=== PATIENT | male | born 1960 | race Caucasian/White ===

== ENCOUNTER → 2023-06-14 08:12 | Outpatient (REF) | payer OTHER, SELFPAY | LOC: RCS 08:12 | PROVIDERS: ATTENDING PHYSICIAN Internal Medicine Cardiovascular Disease; FAMILY PHYSICIAN Family Medicine | DX: Z95.2 Presence of prosthetic heart valve (principal) | CPT/HCPCS: 93306 ==

== ENCOUNTER 2023-07-03 00:47 | Inpatient (IN) | payer OTHER, MEDICARE, SELFPAY ==
[2023-07-02 20:44] VITALS: BP 93/59
[2023-07-02 21:04] LABS: % Basophils 0.3 % (0-2); % Immature Granulocytes 1.3 % (0-0.5); % Monocytes 5.5 % (1.7-9.3); % Neutrophils 86.9 % (42.2-75.2); Absolute Basophils 0.1 10^3/uL (0-0.2); Absolute Immature Granulocytes 0.3 10^3/uL (0-0.05); Absolute Lymphocytes 1.2 10^3/uL (1.2-3.4); Absolute Monocytes 1.1 10^3/uL (0.1-0.6); Absolute Neutrophils 17.2 10^3/uL (1.4-6.5); Hematocrit 47.6 % (39.0-52.0); Hemoglobin 15.7 g/dL (13.0-18.0); Mean Platelet Volume 9.9 fL (7.4-10.4); Nucleated Red Blood Cells % 0 % (-); Platelet Count 295 10^3/uL (130-400); Red Blood Cell Count 5.41 10^6/uL (4.70-6.10); Red Cell Dist. Width 14.8 % (11.5-14.5); White Blood Cell Count 19.7 10^3/uL (4.8-10.8)
[2023-07-02 21:32] LABS: COVID-19 Antigen Negative (Negative)
[2023-07-02 21:54] LABS: ALT (SGPT) 26 U/L (0-50); AST (SGOT) 36 U/L (17-59); Albumin 4.4 g/dl (3.5-5.0); Alkaline Phosphatase 128 U/L (38-126); Blood Urea Nitrogen 44 mg/dl (9-20); Calcium 9.5 mg/dl (8.4-10.2); Carbon Dioxide < 5 mmol/L (22-30); Chloride 102 mmol/L (98-107); Glucose 336 mg/dl (70-99); Potassium 5.1 mmol/L (3.5-5.1); Sodium 132 mmol/L (135-145); Total Bilirubin 0.7 mg/dl (0.2-1.3); Total Protein 7.8 g/dl (6.3-8.2); eGFR 41.26
[2023-07-02 22:11] VITALS: BP 103/79
[2023-07-02 22:58] VITALS: BMI 29.6
[2023-07-02 23:00] VITALS: BP 96/59
[2023-07-02 23:06] LABS: Glucose - Point of Care 357 mg/dl (70-99)
--- NOTE | 2023-07-02 23:12 | ED.GENMED ---
History of Present Illness
General
Chief Complaint: Cold/Flu/URI Symptoms
Source: patient
Exam Limitations: none
Time Seen by Provider: 07/02/23 22:18
Travel History
Have you had any contact with someone who has COVID-19?: No
Do you have any symptoms of coronavirus? Fever > 100 degrees, chills, cough, shortness of breath, sore throat, loss of taste or smell, muscle aches, or headache?: Yes
Symptoms:: SOB
History of Present Illness
History of Present Illness:
This is a 63 year old male that comes in with c/o SOB and weakness. States that yesterday he tested positive for COVID at work. States that on Saturday he started just feeling exhausted. States that he was SOB and was unable to walk more then 10 yards
as he was SOB. Stae that his blood sugar was about 120. Saturday night he felt fatigued but Saturday it was much worse. States that he did play golf and he walked the course. By Saturday night he was lethargic and could hardly walk. States that he felt
disoriented with his walking. States that he is very SOB. has had fever on and off with chills, nausea, vomiting, very slight Diarrhea, and he feels that he is dizzy. Denies any chest pain, abd pain, headache, urinary burning.
Past History
Past History
ED Past Medical History: CAD, HTN, Hypercholesterolemia, NIDDM and DE
ED Past Surgical History: Cardiac (2 cardiac stents, Aortic valve replaced, DE X 2, ) and Orthopedic (Right shoulder rotator cuff surgery)
Social History
Tobacco: Non-smoker
Alcohol: None
Personal:
Living: with family
Employment: Employed
Review of Systems
Review of Systems
All Other Systems: ROS reviewed and negative except as documented in HPI and ROS
Constitutional: Reports fever, fatigue and chills
EENT: Reports no symptoms
Respiratory: Reports trouble breathing; Denies cough
Cardiac: Denies chest pain
ABD/GI: Reports nausea, vomiting and diarrhea (Very slight); Denies abdominal pain
: Reports no symptoms; Denies dysuria, frequency or urgency
Musculoskeletal: Reports no symptoms
Skin: Reports no symptoms
Neurological: Reports dizzy; Denies headache
Psychiatric: Reports no symptoms
Phy Exam
General Physical Exam
General Presentation: mild distress
General age: appears stated age
General Skin: warm and dry
General Habitus: normal
General Mental: alert
General Hydration: dry mucous membranes
ENT Exam
ENT Exam: TM's normal, pharynx normal and neck supple
Eye Exam
Eye Exam: EOMI
Cardiovascular Exam
Cardiovascular Exam: regular rate/rhythm, no edema and normal peripheral pulses
Pulmonary Exam
Pulmonary Exam: lungs clear, no respiratory distress, no rales, chest non tender, no crackles, no rhonchi, no wheezing and no cough
Gastrointestinal Exam
Gastrointestinal Exam: normal bowel sounds, non tender, soft, no organomegaly, no pulsatile mass and non distended
Musculoskeletal Exam
Musculoskeletal Exam: full ROM and no edema
Skin Exam
Skin Exam: warm/dry, no rash, no petechia and pallor
Psychiatric Exam
Psychiatric Exam: normal mood/affect
Course
Orders/Labs/Results
Orders:
Orders
07/02/23 20:57
B-Hydroxybutyrate Urgent
Comment: ADD ON
COVID-19 Antigen Urgent
Source: Nasal Swab
Complete Blood Count/With Diff Urgent
Comprehensive Metabolic Panel Urgent
07/02/23 23:11
0.9% Sodium Chloride 1000 ml [Nss] 1,000 ml IV BOLUS
07/02/23 23:13
CR Chest - 2 Views Urgent
Comment:
Reason For Exam: SOB
07/02/23 23:16
CT Head W/o Iv Contrast Urgent
Comment:
Reason For Exam: Difficulty walking
07/02/23 23:20
Add On- LAB Urgent
Tests Added?: B-Hydroxybutyrate
Lactic Acid Urgent
Blood Culture Q30M
MARY ALICE Source: Blood/Venous
Specimen Description:
07/02/23 23:48
0.9% Sodium Chloride 1000 ml [Nss] 1,000 ml IV BOLUS
07/02/23 23:49
Urinalysis Reflex To Culture Urgent
Date Specimen was Collected: 07/02/23
Time Specimen was Collected: 23:26
Urine Microscopic Reflex Cult Urgent
Urine Culture Urgent
MARY ALICE Source: U
Specimen Description:
Date Specimen was Collected: 07/02/23
Time Specimen was Collected: 23:26
07/02/23 23:55
Blood Culture Q30M
MARY ALICE Source: Blood/Venous
Specimen Description:
07/03/23 00:19
Basic Metabolic Panel Urgent
07/03/23 00:29
Admit/Transfer Patient As Directed
Co-Sign Provider:
Level of Care: Inpatient admission
Assign to:: ICU
Physician / Group: Paty/hospitalist
Diagnosis: DKA
Reason for Hospitalization: DKA
Expected length of stay greater than two midnights?: Yes
ELOS- Estimated Length of Stay in days: 3
I certify the patient meets the requirements for IP care: Yes
07/03/23 00:30
Code Status As Directed
Resuscitation Status: Full Code
07/03/23 01:23
Acetaminophen [Tylenol] 650 mg PO Q6HPRN PRN
Reg Insulin 100 Units/100 ml [Novolin R Insulin Infusion] 100 units in 100 ml IV PER PROTOCOL
Currently infusing. Continue current dose and titrate:: Yes
07/03/23 01:23
Consult Notification Routine
Specialty to Notify: Drug Abuse Counselor
Diabetes Management by Nurse Practitioner Routine
Consulting Provider: Patsy Colbert
Was provider already notified?: No
Reason for Consult: Insulin Management
Drug Abuse Counselor Consult Routine
Consulting Provider: Marilyn Goodson
Was physician already notified: No
Reason for consult: DKA
Activity As Directed
Activity Level: As Tolerated
Bedside Glucose Monitoring As Directed
Frequency: Q1H
Intake/ Output As Directed
Frequency: Per unit guidelines
Notify MD As Directed
Notify physician if: Nurse to contact provider when glucose reaches 250 to obtain orders for D5 0.45 NaCl
Vital Signs As Directed
Frequency: Per unit guidelines
DX Deep Vein Thrombosis Video Routine
07/03/23 02:00
Azithromycin 500 mg/250 ml [Zithromax Infusion] 500 mg in 250 ml IV Q24H
CefTRIAXone [Rocephin] 1,000 mg IV Q24H
07/03/23 04:00
Basic Metabolic Panel Q4H
07/03/23 Breakfast
NPO
Allow oral meds: Yes
Allow clear liquids: Sips of Clears
Complete Blood Count/With Diff IN AM
Glycohemoglobin (HgbA1c) IN AM
07/03/23 08:00
Basic Metabolic Panel Q4H
Aspirin Low Dose EC [Aspir Low (Enteric Coated)] 81 mg PO DAILY
Heparin 5,000 units SC Q12
Rosuvastatin Calcium [Crestor] 40 mg PO DAILY
07/03/23 12:00
Basic Metabolic Panel Q4H
07/03/23 16:00
Basic Metabolic Panel Q4H
07/03/23 20:00
Basic Metabolic Panel Q4H
Abnormal Lab Results
07/02/23 07/02/23 07/02/23
20:57 23:05 23:20
WBC 19.7 H 10^3/uL
(4.8-10.8)
RDW 14.8 H %
(11.5-14.5)
Abs Immat Gran (auto) 0.3 H 10^3/uL
(0-0.05)
Absolute Neuts (auto) 17.2 H 10^3/uL
(1.4-6.5)
Absolute Monos (auto) 1.1 H 10^3/uL
(0.1-0.6)
Immature Gran % 1.3 H %
(0-0.5)
Neutrophils % 86.9 H %
(42.2-75.2)
Lymphocytes % 6.0 L %
(20.5-51.1)
Sodium 132 L mmol/L
(135-145)
Potassium
Carbon Dioxide < 5 L* mmol/L
(22-30)
BUN 44 H mg/dl
(9-20)
Creatinine 1.8 H mg/dL
(0.7-1.3)
Glucose 336 H mg/dl
(70-99)
Lactic Acid 2.5 H mmol/L
(0.7-2.0)
Calcium
Alkaline Phosphatase 128 H U/L
(38-126)
Urine Ketones
Ur Occult Blood Reflex
Urine RBC
Urine Bacteria (Reflex)
Urine Glucose
Urine Albumin (Reflex)
B-Hydroxybutyrate 7.27 H mmol/L
(0.02-0.27)
POC Glucose 357 H mg/dl
(70-99)
07/02/23 07/03/23
23:49 00:19
WBC
RDW
Abs Immat Gran (auto)
Absolute Neuts (auto)
Absolute Monos (auto)
Immature Gran %
Neutrophils %
Lymphocytes %
Sodium 132 L mmol/L
(135-145)
Potassium 5.2 H mmol/L
(3.5-5.1)
Carbon Dioxide < 5 L* mmol/L
(22-30)
BUN 49 H mg/dl
(9-20)
Creatinine 2.0 H mg/dL
(0.7-1.3)
Glucose 336 H mg/dl
(70-99)
Lactic Acid
Calcium 8.1 L mg/dl
(8.4-10.2)
Alkaline Phosphatase
Urine Ketones 3+ A
(Negative)
Ur Occult Blood Reflex 4+ A
(Negative)
Urine RBC 7-10 A /HPF
(0-2)
Urine Bacteria (Reflex) Moderate A
(Negative)
Urine Glucose 3+ A
(Negative)
Urine Albumin (Reflex) 1+ A
(Neg - Trace)
B-Hydroxybutyrate
POC Glucose
07/02/23 20:57
07/03/23 00:19
Leukocytosis, Sodium slightly low. acute renal insufficiency, Hyperglycemia, Alk phos slightly elevated. COVID negative. Anion gap 25, Lactic acid 2.5, Urine negative for infection.
Repeat labs after 2 liters of fluid- Sodium 132, Potassium 5.2, chloride 106, Carbon dioxide <5, BUN 49, Cr 2.0, Glucose 226, Calcium 8.1
Vital Signs
Initial and Last Documented VS:
Initial Vital Signs
Pulse Resp BP Pulse Ox
105 30 93/59 96
07/02/23 20:44 07/02/23 20:44 07/02/23 20:44 07/02/23 20:44
Last Documented Vital Signs
Pulse Resp BP Pulse Ox
92 24 111/62 100
07/03/23 01:39 07/03/23 01:39 07/03/23 01:00 07/03/23 00:15
MDM/Problems Addressed
Differential Diagnosis Includes:
DKA, UTI, PNA,
MDM/Problems Addressed:
This is a 63 year old male that comes in with c/o extreme exhaustion and SOB. States that he feels disoriented with walking and he can't walk more then 10 feet.
Will get labs. CT head, Chest x-ray Urine and given IV fluids.
Chronic conditions affecting care: DM
Acute Exacerbation and/or Progression of Chronic Illness: DM
*Radiology
Radiology exam reviewed: preliminary read by ED provider (Chest- Negative for active disease. ) and radiology read reviewed (CT head-NO acute hemorrhage, herniation, or hydrocephalus. No calvarial fracure. The visualized paranasal sinuses and
mastoid air cells are clear. )
*Pulse Oximetry
Patient hypoxic: no
*Online Editor Interpretation
Rate: normal
Heart Rate: 94
Rhythm: sinus
*Critical Care Note
Total Time (30-74mins, 75-104mins- exclusive of procedures): Not Applicable
ED Attending Note
-
Portions of this chart may have been created with voice recognition software.� Occasional wrong word or��sound alike� substitutions may have occurred due to the inherent limitations of voice recognition software.
Discharge Plan
Departure
Patient Disposition: Admit
Date of Disposition: 07/03/23
Time of Disposition: 00:11
Admit to: ICU
Presentation/result/management discussed w/ accepting MD/DO: Hospitalist
Patient with high blood pressure during this ER visit?: No
Condition: Good
Covid-19: Negative COVID-19
Discharge Problem:
DKA (diabetic ketoacidosis)
Interventions
Interventions:
*Risk Screen - Suicide Last Done: 07/02/23 20:44
*General Assessment Last Done: 07/02/23 22:50
*Neglect/Abuse Screening Last Done: 07/02/23 20:44
ED- Fall Risk Assessment Last Done: 07/02/23 22:50
*ED COVID-19 Vaccine History Last Done: 07/02/23 20:44
ED- Pulmonary Assessment Last Done: 07/02/23 22:50
[2023-07-02] MEDS: NSS 1000 IV ×2 (23:15→23:57)
[2023-07-02 23:44] LABS: Lactic Acid 2.5 mmol/L (0.7-2.0)
[2023-07-02] MEDS: NSS IV (23:56)
[2023-07-03] VITALS (29 sets, daily range): BP systolic 93–145; BP diastolic 50–89; BMI 29.5
[2023-07-03 00:05] LABS: Urine Albumin 1+ (Neg - Trace); Urine Bilirubin Negative (Negative); Urine Character Clear (Clear); Urine Color Yellow; Urine Glucose 3+ (Negative); Urine Ketone 3+ (Negative); Urine Leukocyte Negative (Negative); Urine Nitrite Negative (Negative); Urine Occult Blood 4+ (Negative); Urine Urobilinogen Negative (Neg - 1+)
--- NOTE | 2023-07-03 00:09 | HPS.HSE ---
Family Physician
-
Family Physician: Francisco Diggs
Chief Complaint
-
Fever, shortness of breath, dyspnea exertion, generalized weakness and fatigue
History of Present Illness
HPI: 63 year old male with PMH CAD s/p 2 PCI and CABG, Aortic valve replacement, HTN, Hypercholesterolemia, NIDDM; p/w generalized weakness, shortness of breath and dyspnea on exertion ongoing for about 2 days. Apparently he was tested positive for
COVID the day prior at work. He also complained of intermittent fever with chills, nausea, vomiting, and mild diarrhea.
He denies to chest pain, abd pain, headache, urinary symptoms etc.
In the ER, he was noted to have anion gap of 25. Admit for euglycemic DKA.
Medical History
Past Medical History
Past Medical History: Reports Other
Additional Past Medical History:
CAD s/p 2 PCI and CABG
Aortic valve replacement
HTN
Hypercholesterolemia
NIDDM
Past Surgical History: Reports Other
Additional Past Surgical History:
Aortic valve replacement
Cardiac bypass surgery x 2
Social History
Alcohol: None
Personal:
Living: With Family
Family History
Family History: Not pertinent
Allergies / Home Medications
Allergies reflects when Allergies were last updated in [facility].
Home Medications with original date entered in [facility]
Allergy/Medication List:
Medications on admission are unable to be verified or confirmed at this time.
Review of Systems
-
Constitutional: Reports See HPI, Fever, Fatigue and Chills
Respiratory: Reports Cough (Mild) and Trouble Breathing
Physical Exam
Vital Signs
Vital Signs
Pulse Resp BP Pulse Ox
96 25 103/79 98
07/02/23 23:00 07/02/23 23:00 07/02/23 22:11 07/02/23 22:57
Physical Exam
General: Well Developed, Well Nourished, Comfortable and Conversant
HEENT: NormoCephalic, Moist mucous membranes, Atraumatic and Oxygen (2 L NC)
Respiratory: Clear and Non Labored Respirations; No Accessory Resp Muscle Use
Cardiac: S1/S2 and Regular Rhythm; No Murmur or Rub
GI: Soft, Non Tender, Non Distended and Normal Bowel Sounds; No Organomegaly
Rectal: Deferred by Provider
Musculoskeletal: No Clubbing, No Cyanosis and No Edema
Skin: No Rash
Neuro: Awake and AO x 3
Psych: Calm and Intact Judgment/Insight
Laboratory Results
-
07/02/23 20:57
07/02/23 20:57
Laboratory Results
Lactic Acid 2.5 mmol/L (0.7-2.0) H 07/02/23 23:20
Total Bilirubin 0.7 mg/dl (0.2-1.3) 07/02/23 20:57
AST 36 U/L (17-59) 07/02/23 20:57
ALT 26 U/L (0-50) 07/02/23 20:57
Alkaline Phosphatase 128 U/L (38-126) H 07/02/23 20:57
Data Reviewed
-
Diagnostic Radiology: Image Personally Visualized and interpreted
Lab Data: Labs Reviewed by me
Impression/Plan
-
HPI: 63 year old male with PMH CAD s/p 2 PCI and CABG, Aortic valve replacement, HTN, Hypercholesterolemia, NIDDM; p/w generalized weakness, shortness of breath and dyspnea on exertion ongoing for about 2 days. Apparently he was tested positive for
COVID the day prior at work. He also complained of intermittent fever with chills, nausea, vomiting, and mild diarrhea.
He denies to chest pain, abd pain, headache, urinary symptoms etc.
In the ER, he was noted to have anion gap of 25. Admit for euglycemic DKA.
A/P:
# Euglycemic DKA with anion gap 25 on admission, BG 300; suspect related to Jardiance which he takes for his heart condition
# h/o NIDDM
# Prerenal ANGELA
# Mild lactic acidosis present on admission
Status post 3 L NSS IV fluid in ER
Start insulin drip
Monitor BMP every 4 hours for anion gap closure x2
NPO for now
DM [employer]AMP[employer] HAND CS
Monitor lactic acid level
Monitor serum creatinine. Creatinine 1.8 on admission, from baseline 0.6
ICU admission with machine crater consult
# Leukocytosis, possibly reactive
Patient did endorse to fever with pulmonary symptoms (mild cough, shortness of breath) for 2 days
Check blood culture
Start empiric ceftriaxone and azithromycin, low threshold to stop antibiotic
CXR on my view NAD, follow formal report
# COVID positive the day prior to admission at work
COVID test negative in ER, check repeat COVID test in the morning
# CAD s/p 2 PCI and CABG
# HTN
Hold BP meds currently with borderline blood pressure
Would NOT recommend to continue with Jardiance
# Aortic valve replacement
# Hypercholesterolemia
statin
DVT ppx: HSQ
FC
[2023-07-03 00:25] LABS: Urine Bacteria Moderate (Negative)
[2023-07-03 00:42] LABS: B-Hydroxybutyrate 7.27 mmol/L (0.02-0.27)
[2023-07-03 01:17] LABS: Blood Urea Nitrogen 49 mg/dl (9-20); Calcium 8.1 mg/dl (8.4-10.2); Carbon Dioxide < 5 mmol/L (22-30); Chloride 106 mmol/L (98-107); Estimated Creatinine Clearance 34 ml/min; Glucose 336 mg/dl (70-99); Potassium 5.2 mmol/L (3.5-5.1); Sodium 132 mmol/L (135-145); eGFR 36.36
[2023-07-03] MEDS: NOVOLIN R INSULIN INFUSION 100 IV (01:36)
[2023-07-03] MEDS: ROCEPHIN 1000 MG IV (02:04)
[2023-07-03] MEDS: ZITHROMAX INFUSION 250 IV (02:15)
[2023-07-03 02:32] LABS: Glucose - Point of Care 292 mg/dl (70-99)
[2023-07-03 03:32] LABS: Glucose - Point of Care 235 mg/dl (70-99)
[2023-07-03] MEDS: D5/0.45%NACL 1000 IV ×3 (03:51→20:25)
[2023-07-03 04:36] LABS: Blood Urea Nitrogen 47 mg/dl (9-20); Calcium 8.3 mg/dl (8.4-10.2); Carbon Dioxide < 5 mmol/L (22-30); Chloride 113 mmol/L (98-107); Estimated Creatinine Clearance 49 ml/min; Glucose 230 mg/dl (70-99); Potassium 4.8 mmol/L (3.5-5.1); Sodium 136 mmol/L (135-145); eGFR 55.78
[2023-07-03 05:01] LABS: Glucose - Point of Care 250 mg/dl (70-99)
--- NOTE | 2023-07-03 05:07 | PTCARENOTE ---
Rec'd patient from ED. Ambulated from stretcher to bed. Generalized weakness. AAOx3. VSS. Insulin gtt and D51/2NS infusing as ordered.
[2023-07-03 06:07] LABS: Glucose - Point of Care 226 mg/dl (70-99)
[2023-07-03 06:09] LABS: % Basophils 0.3 % (0-2); % Immature Granulocytes 0.8 % (0-0.5); % Lymphocytes 5.6 % (20.5-51.1); % Monocytes 5.9 % (1.7-9.3); % Neutrophils 87.4 % (42.2-75.2); Absolute Immature Granulocytes 0.1 10^3/uL (0-0.05); Absolute Lymphocytes 0.9 10^3/uL (1.2-3.4); Absolute Monocytes 0.9 10^3/uL (0.1-0.6); Absolute Neutrophils 13.9 10^3/uL (1.4-6.5); Hematocrit 39.8 % (39.0-52.0); Hemoglobin 13.5 g/dL (13.0-18.0); Mean Corp Hgb Conc. 33.9 g/dL (33.0-37.0); Mean Corpuscular Hgb 29.2 pg (27.0-31.0); Mean Corpuscular Volume 86.1 fL (80.0-94.0); Mean Platelet Volume 10.2 fL (7.4-10.4); Nucleated Red Blood Cells % 0 % (-); Platelet Count 196 10^3/uL (130-400); Red Blood Cell Count 4.62 10^6/uL (4.70-6.10); Red Cell Dist. Width 14.9 % (11.5-14.5); White Blood Cell Count 15.9 10^3/uL (4.8-10.8)
[2023-07-03 06:19] LABS: APTT 30.6 Sec (23.4-35.0)
[2023-07-03 06:36] LABS: Lactic Acid 0.9 mmol/L (0.7-2.0); Magnesium 2.9 mg/dl (1.6-2.3); Phosphorus 3.2 mg/dl (2.5-4.5)
--- NOTE | 2023-07-03 07:22 | CON.INTV ---
Consultation
Consultation Request
Date/Time Consultation Requested: 07/03/23
Date/Time Consultation Performed: 07/03/23
Performing Provider: Kellee
Reason for Consultation: ICU
Medical History
-
History of Present Illness:
Patient is a 63-year-old male with previous history of CAD status post CABG, aortic valve replacement, JONNATHAN on CPAP presenting to ER for generalized weakness, shortness of breath and fever/chills since wednesday 06/28. He tested self tested
positive for COVID on friday 06/30. In the ER, he was noted to have hyperglycemia with anion gap metabolic acidosis consistent with DKA. He is placed on an insulin drip and admitted to ICU.
CXR clear, he seems improved from a symptomatic place and on RA. COVID testing in ER negative.
He did notice polydipsia through the weekend with nausea.
Past Medical History
Past Medical History: Other (see list below)
Social History
Tobacco: Non-smoker
Alcohol: None
Drug: None
Family History
Family History: Reviewed & Not Pertinent
Allergies / Home Medications
Allergies
Allergy/AdvReac Type Severity Reaction Status Date / Time
clopidogrel [From Plavix] Allergy SWELLING Verified 07/03/23 00:21
AND RASH
Home Medications
�Medication �Instructions �Recorded �Confirmed �Last Taken �Type
lisinopril 40 mg tablet 40 mg PO BID 10/10/13 12/01/21 12/01/21 06:30 History
rosuvastatin 40 mg tablet (Crestor) 40 mg PO DAILY 10/10/13 12/01/21 12/01/21 06:30 History
aspirin 81 mg capsule 81 mg PO DAILY 12/01/21 12/01/21 12/01/21 08:00 History
empagliflozin 10 mg tablet 10 mg PO DAILY 12/01/21 12/01/21 11/30/21 05:00 History
(Jardiance)
ezetimibe 10 mg tablet (Zetia) 10 mg PO DAILY 12/01/21 12/01/2112/01/22 06:30 History
metformin 1,000 mg tablet 1,000 mg PO BID 12/01/21 12/01/21 11/30/21 05:00 History
metoprolol succinate 50 mg 50 mg PO DAILY 12/01/21 12/01/21 12/01/21 06:30 History
tablet,extended release 24 hr
Review of Systems
-
History Source: Patient
All other systems: Negative unless noted
Vitals / Labs / Diagnostic Testing
Vital Signs
Temp Pulse Resp BP Pulse Ox
96.0 F L 91 26 104/64 94
07/03/23 04:57 07/03/23 06:15 07/03/23 06:15 07/03/23 06:15 07/03/23 06:15
Lab Data
07/03/23 05:54
Laboratory Results
07/03/23
05:54
PT 16.0 H
INR 1.30
APTT 30.6
Diagnostic Testing:
Physical Exam
-
HEENT: Normocephalic, Anicteric and Moist Mucous Membranes
Cardiovascular: S1/S2 and Regular Rhythm
Respiratory: Clear and Non-Labored Respirations
GI: Soft, Non Distended and Non Tender
Neurology: Awake, Alert, Oriented, AO x 3 and No Motor Deficits
Skin: Warm, Dry and Good Color
General: Comfortable and Other (NAD)
Assessment
-
Patient is a 63-year-old male with previous history of CAD status post CABG, aortic valve replacement, JONNATHAN on CPAP presenting to ER for generalized weakness, shortness of breath and fever/chills since wednesday 06/28. He tested self tested
positive for COVID on friday 06/30. In the ER, he was noted to have hyperglycemia with anion gap metabolic acidosis consistent with DKA. He is placed on an insulin drip and admitted to ICU.
DKA
Acute COVID infection, neg PCR test on admission
ANGELA, creat 2.0 (baseline 0.6-0.9)
Lactic acidosis
Leukocytosis
Generalized malaise/fatigue
SOB
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
Hyperlipidemia
Hypertension
Non Q-Wave ID
PAF
Inflammatory arthritis
Diabetes type 2
CAD in [place] artery S/P Catheterization Stents x2
Heart murmur
History of ID
Angioplasty(2004)
Shoulder Surgery
CABG and Aortic valve replacement @[facility] 06/25/22
JONNATHAN on CPAP, HST 06/30/20 AHI 72.5/63%
Plan
DKA, admitting BS elevated, AG >20
Bicarb <5. 3+ ketones in urine
Started on insulin drip, can wean today following protocol, start D5 IVFs
Consult diabetic nurse for insulin recommendations
Can restart diet once able to bridge
H/o poorly controlled diabetes, hopeful transition to home meds
Trigger may be COVID illness
Hba1c 9.6%
NPO for now
Diet transition following DKA protocol
GI ppx: as indicated
Oxygen requirements: room air
Continue supplemental O2 as needed, wean as tolerated
Encourage daily proning and OOB
COVID tested + 06/30, symptoms began 06/28
CXR clear, he seems improved from a symptomatic place and on RA.
COVID testing in ER negative 07/01.
I do not think patient requires treatment for this or isolation/discussed with IP
Patient can wear mask
Remove isolation
Supportive care
Prior pulmonary history: JONNATHAN on CPAP
Resume home CPAP
Hemodynamically stable, not requiring pressors.
Prior h/o cardiac disease--HTN/CAD, resume home meds
ECHO in past reviewed/stable
Creat at baseline, follow UO
Acid/base status: AGMA 2/2 DKA, follow until AG <12
DVT ppx SCDs
We will follow
Diagnostic Data
Chest X-Ray: 03/29/10- No active cardiopulmonary disease
CT Scan: AP 10/10/13- Diverticulosis with findings suspicious for diverticulitis of the proximal sigmoid colon. No accompanying abnormal focal fluid collection. Small fat only containing umbilical hernia.
Right renal cyst. Mild diffuse fatty infiltration of the liver.
Echo: 06/14/23- Normal left ventricular size, wall thickness and systolic function. No regional wall motion abnormalities are seen. LV ejection fraction is 55-60% by visual assessment. Normal diastolic function. Prosthetic aortic valve. Peak/mean
gradients across the aortic valve are 17/9 mmHg. Trace aortic regurgitation is seen. Since echocardiogram October 2021, patient is now status post AVR.
11/10/21- 1. Normal left ventricular size and systolic function. Estimated LV ejection fraction 55 to 60% by visual estimation. No obvious regional wall motion abnormalities. Normal diastolic function.
2. Normal right ventricular size and function.
3. Calcified, trileaflet aortic valve with decreased excursion. Peak and mean gradients across the aortic valve are 70 and 40 mmHg respectively with a calculated aortic valve area of 0.8 cm2 using the continuity equation, dimensionless index of
0.2 consistent with severe aortic stenosis. Mild aortic regurgitation.
4. Mild tricuspid regurgitation with estimated pulmonary artery pressure of 25 to 30 mmHg, assuming a right atrial pressure of 3 mmHg.
5. No pericardial effusion.
6. Compared to prior echocardiogram on 05/10/2021, mean gradient across aortic valve has increased to 40mmHg consistent with severe aortic stenosis.
PFT's:
Reports and relevant images were personally reviewed.
-----
Critical care time 75 mins -- this includes review of history, physical exam, medications, hemodynamic/ventilator parameters, laboratory data, imaging and discussion with house staff, pharmacy, respiratory therapy, circular saw filer, and nursing.
[2023-07-03 07:34] LABS: Glucose - Point of Care 215 mg/dl (70-99)
--- NOTE | 2023-07-03 08:00 | PTCARENOTE ---
Assumed care of pt at 0715 following shift report. Pt resting quietly in bed w/ eyes closed. Arousable to name. Ox3 and appropriate. Denies c/o pain other than 'a little bit of a sore throat'. Pt remains on RA w/ IVF and Insulin gtt infusing as
documented. NSR on monitor. Pt NPO per order, taking sips of clear liquids. Denies any nausea. Independently using urinal to void. Physical assessment as documented. Call renetta w/in pt reach and safe environment maintained.
[2023-07-03] MEDS: HEPARIN 5000 UNITS SC ×3 (08:16→23:44)
[2023-07-03] MEDS: ASPIR LOW (ENTERIC COATED) 81 MG PO (08:16)
[2023-07-03] MEDS: CRESTOR 40 MG PO (08:16)
[2023-07-03 08:26] LABS: Glucose - Point of Care 200 mg/dl (70-99)
--- NOTE | 2023-07-03 08:57 | PN.DE.MGMTRT ---
Insulin Management
- -
07/03/2023 Diabetes Management Consult
Patient admitted 07/01 with fever, SUN, weakness, covid +, DKA. PMH CAD s/p 2 PCI and CABG, Aortic valve, HTN, HCL, type 2 diabetes. Patient known to me from one time consultation in 2019. Soliqua was started at that time. Home medications
include Jardiance 10 mg daily and metformin 1000 BID. A1C is 9.6,
Cr 1.4, eGFR 55.78, GAP improved from 30 to 23.
Will continue insulin infusion and reassess for readiness to transition from insulin infusion. Will not restart Jardiance.
Discussed with patients nurse.
Diabetes History
- -
Type of Diabetes: 2
Pre-Admission Diabetes Regimen
07/02/23 07/03/23 07/03/23
20:57 00:19 03:43
Creatinine 1.8 H 2.0 H 1.4 H
Insulin Pump Settings
IP Diabetes Regimen
07/02/23 07/02/23 07/03/23
20:57 23:05 00:19
Glucose 336 H 336 H
POC Glucose 357 H
07/03/23 07/03/23 07/03/23
02:30 03:31 03:43
Glucose 230 H
POC Glucose 292 H 235 H
07/03/23 07/03/23 07/03/23
04:49 05:53 07:24
Glucose
POC Glucose 250 H 226 H 215 H
07/03/23
08:14
Glucose
POC Glucose 200 H
Patient Education
[2023-07-03 09:10] LABS: Blood Urea Nitrogen 43 mg/dl (9-20); Calcium 8.5 mg/dl (8.4-10.2); Carbon Dioxide < 5 mmol/L (22-30); Chloride 114 mmol/L (98-107); Estimated Creatinine Clearance 63 ml/min; Glucose 224 mg/dl (70-99); Potassium 4.6 mmol/L (3.5-5.1); Sodium 137 mmol/L (135-145); eGFR > 60.00
--- NOTE | 2023-07-03 09:19 | W.PN.HOSP.TC ---
Today's Communication/Plan
-
IV fluids. IV insulin drip. Monitor electrolytes and anion gap closely. IV antibiotics.
Assessment / Plan
Assessment / Plan
Physical Exam
General: Acutely ill
HEENT: NormoCephalic, Moist mucous membranes, Atraumatic and Oxygen (2 L NC)
Respiratory: Clear and Non Labored Respirations; No Accessory Resp Muscle Use
Cardiac: S1/S2 and Regular Rhythm; No Murmur or Rub
GI: Soft, Non Tender, Non Distended and Normal Bowel Sounds; No Organomegaly
Rectal: Deferred by Provider
Musculoskeletal: No Clubbing, No Cyanosis and No Edema
Skin: No Rash
Neuro: Awake and AO x 3
Psych: Calm and Intact Judgment/Insight
A/P:
A/P:
# Euglycemic DKA with anion gap 25 on admission, BG 300; suspect related to Jardiance which he takes for his heart condition but also infectious process could have been contributed.
# h/o NIDDM
# Prerenal ANGELA
# Mild lactic acidosis present on admission
Bicarb 6 upon admission glucose 240
Status post 3 L NSS IV fluid in ER
Cont insulin drip
Monitor BMP every 4 hours for anion gap closure x2
NPO for now
DM INSIDE WIRER CS
Monitor lactic acid level
Monitor serum creatinine. Creatinine 1.8 on admission, from baseline 0.6
ICU admission with associate spa director consult
# Leukocytosis, possibly reactive versus infectious
Patient did endorse to fever with pulmonary symptoms (mild cough, shortness of breath) for 2 days
Check blood culture
Continue empiric ceftriaxone and azithromycin
Follow-up cultures
CXR on my view NAD, follow formal report
# COVID positive the day prior to admission at work
COVID test negative in ER.
Does not require any further treatment.
# CAD s/p 2 PCI and CABG
# HTN
Continue aspirin and statin
Hold BP meds currently with borderline blood pressure
Would NOT recommend to continue with Jardiance
# Paroxysmal atrial fibrillation
#Obstructive sleep apnea
# Aortic valve replacement
#Hypertension
# Hypercholesterolemia
statin
Full code
DVT ppx: HSQ
Total Critical Care Time 35 minutes. I was immediately available to the patient and staff. I personally examined, reviewed labs, diagnostic images/reports, interpretations, treatment plans, discussed patient care with other providers and family
or caregivers (if patient is unable to make decisions), entered orders as appropriate and documented the medical record.
Anticipated Discharge: > 48 hours
Subjective/Interval History
-
Date of Service: July 03, 2023
Patient does not feel well yet. Still acidotic. Afebrile and episode of hypothermia.
Objective Data
-
Labs:
Laboratory Results
07/02/23 07/03/23 07/03/23
20:57 00:19 03:43
WBC
Hgb
Hct
Plt Count
PT
INR
APTT
Sodium 132 L 132 L 136
Potassium 5.1 5.2 H 4.8
Chloride 102 106 113 H
Carbon Dioxide < 5 L* < 5 L* < 5 L*
BUN 44 H 49 H 47 H
Creatinine 1.8 H 2.0 H 1.4 H
Glucose 336 H 336 H 230 H
Calcium 9.5 8.1 L 8.3 L
Total Bilirubin 0.7
AST 36
ALT 26
Alkaline Phosphatase 128 H
07/03/23 07/03/23 07/03/23
05:54 08:22 12:00
WBC 15.9 H
Hgb 13.5
Hct 39.8
Plt Count 196 D
PT 16.0 H
INR 1.30
APTT 30.6
Sodium 137 Pending
Potassium 4.6 Pending
Chloride 114 H Pending
Carbon Dioxide < 5 L* Pending
BUN 43 H Pending
Creatinine 1.1 Pending
Glucose 224 H Pending
Calcium 8.5 Pending
Total Bilirubin
AST
ALT
Alkaline Phosphatase
07/03/23 07/03/23
16:00 20:00
WBC
Hgb
Hct
Plt Count
PT
INR
APTT
Sodium Pending Pending
Potassium Pending Pending
Chloride Pending Pending
Carbon Dioxide Pending Pending
BUN Pending Pending
Creatinine Pending Pending
Glucose Pending Pending
Calcium Pending Pending
Total Bilirubin
AST
ALT
Alkaline Phosphatase
Vital Signs:
Vital Signs
Temp Pulse Resp BP Pulse Ox
97.9 F 91 26 104/64 94
07/03/23 07:43 07/03/23 06:15 07/03/23 06:15 07/03/23 06:15 07/03/23 06:15
I&O
07/02/23 07/03/23 07/04/23
06:59 06:59 06:59
Output Total 875 / 875
Balance -875 / -875
[2023-07-03 09:36] LABS: Glycohemoglobin (HgbA1c) 9.6 % (4.0-5.6)
[2023-07-03 09:37] LABS: Glucose - Point of Care 209 mg/dl (70-99)
[2023-07-03 10:36] LABS: Glucose - Point of Care 215 mg/dl (70-99)
[2023-07-03 11:26] LABS: B.E. -15.1 mmol/L; O2 Saturation % 93.7 % (94-98); PCO2 19 mmHg (35-48); pH 7.29 (7.35-7.45)
[2023-07-03 11:30] LABS: O2 Therapy ROOM AIR
[2023-07-03 11:32] LABS: HCO3 9.1 mmol/L (21-28); PO2 59 mmHg (83-108)
[2023-07-03 12:09] LABS: Glucose - Point of Care 232 mg/dl (70-99)
--- NOTE | 2023-07-03 12:24 | PTCARENOTE ---
Pt continues to rest quietly in bed- napping when undisturbed. Denes pain or SOB. Pox mid 90's on RA, RR low to mid 20's. No changes from previous assessment findings.
[2023-07-03 12:43] LABS: Troponin I < 0.012 ng/ml
[2023-07-03 12:51] LABS: Glucose - Point of Care 220 mg/dl (70-99)
[2023-07-03 13:00] LABS: Procalcitonin 1.64 ng/ml (0.0-0.25)
[2023-07-03 13:42] LABS: Blood Urea Nitrogen 35 mg/dl (9-20); Calcium 8.4 mg/dl (8.4-10.2); Carbon Dioxide 6 mmol/L (22-30); Chloride 114 mmol/L (98-107); Estimated Creatinine Clearance 77 ml/min; Glucose 240 mg/dl (70-99); Potassium 4.1 mmol/L (3.5-5.1); Sodium 137 mmol/L (135-145); eGFR > 60.00
[2023-07-03 13:47] LABS: Glucose - Point of Care 209 mg/dl (70-99)
--- NOTE | 2023-07-03 13:50 | PTCARENOTE ---
Novel Respiratory precautions removed per Dr Nicole. Infection Prevention made aware of ordered change in precautions. Per Dr Nicole, she spoke to pt about him wearing a mask when people in room and per Dr Nicole, pt voiced understanding and agreement
with this. Pt placed on droplet precautions as added safety measure- Dr Nicole and Infection prevention made aware. Pt continues to rest quietly, no changes noted or complaints received.
--- NOTE | 2023-07-03 13:52 | CM ---
CM following re: discharge planning.
Discussed in Rounds, reviewed pt's chart, met with pt.
Pt is a 63 year old male, admitted with primary dx of DKA.
Pt reports he lives with spouse 2SH, 1 step t enter, has 2 supportive children. 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
PCP: Francisco turcios
Pharmacy: [facility]
D/C plan: home with anticipated no needs. Spouse to transport at discharge.
CM will follow with discharge plan updates as hospitalization progresses
[2023-07-03 15:01] LABS: Glucose - Point of Care 204 mg/dl (70-99)
--- NOTE | 2023-07-03 15:08 | PTCARENOTE ---
Per Infection Control, spoke w/ Dr Nicole and pt OK for no additional precautions other than standard.
[2023-07-03 15:41] LABS: Glucose - Point of Care 203 mg/dl (70-99)
--- NOTE | 2023-07-03 16:00 | PTCARENOTE ---
Pt sat OOB in chair x1.5hr. Tolerated well, requesting to return to bed. here to visit and brought pt's CPap from home. Continuing to adjust Insulin gtt rate based on accuchecks (see work list intervention). Remains on RA w/ Pox 96%. Mild SUN
noted w/ increased activity. Denies SOB at rest. Remains NPO excepts sips of clear liquids.
[2023-07-03 16:49] LABS: Glucose - Point of Care 270 mg/dl (70-99)
[2023-07-03 17:08] LABS: Blood Urea Nitrogen 33 mg/dl (9-20); Calcium 8.5 mg/dl (8.4-10.2); Carbon Dioxide 8 mmol/L (22-30); Chloride 113 mmol/L (98-107); Estimated Creatinine Clearance 77 ml/min; Glucose 253 mg/dl (70-99); Potassium 4.3 mmol/L (3.5-5.1); Sodium 136 mmol/L (135-145); eGFR > 60.00
[2023-07-03 17:53] LABS: Glucose - Point of Care 230 mg/dl (70-99)
[2023-07-03 18:45] LABS: Glucose - Point of Care 225 mg/dl (70-99)
[2023-07-03] MEDS: LOPRESSOR 5 MG IV (20:12)
[2023-07-03 20:21] LABS: Glucose - Point of Care 201 mg/dl (70-99)
--- NOTE | 2023-07-03 20:40 | PTCARENOTE ---
Rec'd care of patient at 1900. Patient in bed. Alert and oriented. Vitals stable. NSR with PACs on tele monitor. Patient having frequent bursts of ST up to 140's. EMBEDDED SOFTWARE DESIGN ENGINEER notified and order for 5mg IV Lopressor obtained. Patient's daily dose of Lopressor
reordered for am as well. POX 100% on RA. Lung sounds coarse/diminished. SUN. Denies dyspnea at rest. Insulin gtt infusing per DKA protocol through RAC INT. IVFs infusing through LAC INT. Q4 BMP.
[2023-07-03 20:45] LABS: Glucose - Point of Care 213 mg/dl (70-99)
[2023-07-03 20:48] LABS: Blood Urea Nitrogen 28 mg/dl (9-20); Calcium 8.3 mg/dl (8.4-10.2); Carbon Dioxide 10 mmol/L (22-30); Chloride 114 mmol/L (98-107); Estimated Creatinine Clearance 86 ml/min; Glucose 213 mg/dl (70-99); Potassium 3.8 mmol/L (3.5-5.1); Sodium 136 mmol/L (135-145); eGFR > 60.00
[2023-07-03 21:40] LABS: Glucose - Point of Care 209 mg/dl (70-99)
[2023-07-03 22:47] LABS: Glucose - Point of Care 248 mg/dl (70-99)
[2023-07-03 23:55] LABS: Glucose - Point of Care 352 mg/dl (70-99)
[2023-07-04] VITALS (24 sets, daily range): BP systolic 113–147; BP diastolic 72–91; BMI 29.4
[2023-07-04] MEDS: LOPRESSOR 5 MG IV (00:06)
[2023-07-04 00:16] LABS: Blood Urea Nitrogen 26 mg/dl (9-20); Calcium 8.4 mg/dl (8.4-10.2); Carbon Dioxide 7 mmol/L (22-30); Chloride 115 mmol/L (98-107); Estimated Creatinine Clearance 86 ml/min; Glucose 223 mg/dl (70-99); Potassium 3.9 mmol/L (3.5-5.1); Sodium 138 mmol/L (135-145); eGFR > 60.00
--- NOTE | 2023-07-04 00:20 | PTCARENOTE ---
Additional dose of 5mg IV Lopressor administered. VSS. All other assessments unchanged.
--- NOTE | 2023-07-04 00:30 | PTCARENOTE ---
Assessment unchanged. Blood sugars and vitals stable.
[2023-07-04 00:47] LABS: Glucose - Point of Care 202 mg/dl (70-99)
[2023-07-04 01:43] LABS: Glucose - Point of Care 268 mg/dl (70-99)
[2023-07-04] MEDS: ZITHROMAX INFUSION 250 IV (02:35)
[2023-07-04] MEDS: ROCEPHIN 1000 MG IV (02:35)
[2023-07-04 02:39] LABS: Glucose - Point of Care 193 mg/dl (70-99)
[2023-07-04 03:57] LABS: Glucose - Point of Care 174 mg/dl (70-99)
--- NOTE | 2023-07-04 04:15 | PTCARENOTE ---
Patient ambulatory to bathroom with standby supervision. +BM. Partial bath and oral hygiene performed. AM labs sent. No complaints. Insulin gtt and IVFs remain on.
[2023-07-04] MEDS: D5/0.45%NACL 1000 IV (04:25)
[2023-07-04 04:27] LABS: % Basophils 0.7 % (0-2); % Immature Granulocytes 1.2 % (0-0.5); % Lymphocytes 8.2 % (20.5-51.1); % Monocytes 9.7 % (1.7-9.3); % Neutrophils 80.2 % (42.2-75.2); Absolute Basophils 0.1 10^3/uL (0-0.2); Absolute Immature Granulocytes 0.1 10^3/uL (0-0.05); Absolute Lymphocytes 0.9 10^3/uL (1.2-3.4); Absolute Neutrophils 8.4 10^3/uL (1.4-6.5); Hematocrit 39.9 % (39.0-52.0); Hemoglobin 13.7 g/dL (13.0-18.0); Mean Corp Hgb Conc. 34.3 g/dL (33.0-37.0); Mean Corpuscular Hgb 28.7 pg (27.0-31.0); Mean Corpuscular Volume 83.6 fL (80.0-94.0); Mean Platelet Volume 10.2 fL (7.4-10.4); Nucleated Red Blood Cells % 0 % (-); Platelet Count 197 10^3/uL (130-400); Red Blood Cell Count 4.77 10^6/uL (4.70-6.10); Red Cell Dist. Width 14.7 % (11.5-14.5); White Blood Cell Count 10.5 10^3/uL (4.8-10.8)
[2023-07-04 04:39] LABS: Glucose - Point of Care 199 mg/dl (70-99)
[2023-07-04 04:52] LABS: Blood Urea Nitrogen 24 mg/dl (9-20); Calcium 8.5 mg/dl (8.4-10.2); Carbon Dioxide 9 mmol/L (22-30); Chloride 116 mmol/L (98-107); Estimated Creatinine Clearance 98 ml/min; Glucose 192 mg/dl (70-99); Sodium 138 mmol/L (135-145); eGFR > 60.00
[2023-07-04 05:51] LABS: Glucose - Point of Care 196 mg/dl (70-99)
[2023-07-04 06:43] LABS: Glucose - Point of Care 191 mg/dl (70-99)
--- NOTE | 2023-07-04 07:27 | W.PN.INTV ---
Today's Communication / Plan
Recommendations
Insulin gtt remains, can bridge when bicarb improving
Add bicarb to IVFs
Blood cultures noted, change abx to Zosyn
Consult ID
Continue nightly CPAP
Assessment
-
Patient is a 63-year-old male with previous history of CAD status post CABG, aortic valve replacement, JONNATHAN on CPAP presenting to ER for generalized weakness, shortness of breath and fever/chills since wednesday 06/28. He tested self tested
positive for COVID on friday 06/30. In the ER, he was noted to have hyperglycemia with anion gap metabolic acidosis consistent with DKA. He is placed on an insulin drip and admitted to ICU.
GPC Bacteremia/sepsis
DKA
AGMA + NAGMA likely from sepsis
Subcute COVID infection, neg PCR test on admission
ANGELA, creat 2.0 (baseline 0.6-0.9)
Lactic acidosis
Leukocytosis
Generalized malaise/fatigue
SOB
Conditions present HAND SINGER
Hyperlipidemia
Hypertension
Non Q-Wave OK
PAF
Inflammatory arthritis
Diabetes type 2
CAD in pauma artery S/P Catheterization Stents x2
Heart murmur
History of OK
Angioplasty(2004)
Shoulder Surgery
CABG and Aortic valve replacement @[facility] 06/25/22
JONNATHAN on CPAP, HST 06/30/20 AHI 72.5/63%
Plan
DKA, admitting BS elevated, AG >20
Bicarb <5. 3+ ketones in urine
Started on insulin drip, can wean today following protocol, start D5 IVFs
Diabetic nurse for insulin recommendations
Can restart diet once able to bridge
H/o poorly controlled diabetes, hopeful transition to home meds
Trigger may be COVID illness/bacteremia
Hba1c 9.6%
NPO for now
Diet transition following DKA protocol
GI ppx: as indicated
Oxygen requirements: room air
Continue supplemental O2 as needed, wean as tolerated
Encourage daily proning and OOB
COVID tested + 06/30, symptoms began 06/28
CXR clear, he seems improved from a symptomatic place and on RA.
COVID testing in ER negative 07/01.
I do not think patient requires treatment for this or isolation/discussed with IP
Patient can wear mask/remove isolation/supportive care
Now with new bacteremia, GPC in pairs 2/2 bottles
H/o AVR, consult ID
Change abx to Zosyn
Prior pulmonary history: JONNATHAN on CPAP
Resume home CPAP
Hemodynamically stable, not requiring pressors.
Prior h/o cardiac disease--HTN/CAD, resume home meds
ECHO in past reviewed/stable
Creat at baseline, follow UO
Acid/base status: AGMA / DKA, follow until AG <12
Change IVFs with bicarb as he likely has concurrent NAGMA from sepsis
DVT ppx SCDs
We will follow
Diagnostic Data
Chest X-Ray: 03/29/10- No active cardiopulmonary disease
CT Scan: AP 10/10/13- Diverticulosis with findings suspicious for diverticulitis of the proximal sigmoid colon. No accompanying abnormal focal fluid collection. Small fat only containing umbilical hernia.
Right renal cyst. Mild diffuse fatty infiltration of the liver.
Echo: 06/14/23- Normal left ventricular size, wall thickness and systolic function. No regional wall motion abnormalities are seen. LV ejection fraction is 55-60% by visual assessment. Normal diastolic function. Prosthetic aortic valve. Peak/mean
gradients across the aortic valve are 17/9 mmHg. Trace aortic regurgitation is seen. Since echocardiogram October 2021, patient is now status post AVR.
11/10/21- 1. Normal left ventricular size and systolic function. Estimated LV ejection fraction 55 to 60% by visual estimation. No obvious regional wall motion abnormalities. Normal diastolic function.
2. Normal right ventricular size and function.
3. Calcified, trileaflet aortic valve with decreased excursion. Peak and mean gradients across the aortic valve are 70 and 40 mmHg respectively with a calculated aortic valve area of 0.8 cm2 using the continuity equation, dimensionless index of
0.2 consistent with severe aortic stenosis. Mild aortic regurgitation.
4. Mild tricuspid regurgitation with estimated pulmonary artery pressure of 25 to 30 mmHg, assuming a right atrial pressure of 3 mmHg.
5. No pericardial effusion.
6. Compared to prior echocardiogram on 05/10/2021, mean gradient across aortic valve has increased to 40mmHg consistent with severe aortic stenosis.
PFT's:
Reports and relevant images were personally reviewed.
-----
Critical care time 35 mins -- this includes review of history, physical exam, medications, hemodynamic/ventilator parameters, laboratory data, imaging and discussion with house staff, pharmacy, respiratory therapy, pega developer, and nursing.
Subjective Dataa
Subjective Data
Date of Service:
Date of Service: July 04, 2023
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
Subjective:
no events on, sitting in chair today
feels good, no new complaints
Objective Data
Data Reviewed
Vital Signs / I&O / Oxygen:
Vital Signs
Temp Pulse Resp BP Pulse Ox
97.7 F 100 20 129/77 98
07/04/23 03:18 07/04/23 05:00 07/04/23 05:00 07/04/23 05:00 07/04/23 05:00
Intake and Output
07/03/23 07/04/23 07/05/23
06:59 06:59 06:59
Intake Total 3305 / 3305
Output Total 875 / 875 2800 / 2800
Balance -875 / -747 505 / 505
SaO2 98
Nasal Cannula flow liters per 3
minute
Physical Exam
General: Comfortable and Other (NAD)
HEENT: Normocephalic, Anicteric and Moist Mucous Membranes
Cardiovascular: S1-S2 and Regular Rhythm
Respiratory: Clear and Non-Labored Respirations
GI: Soft, Non Distended and Non Tender
Neurology: Awake, Alert, Oriented, AO x 3 and No Motor Deficits
Skin: Warm, Dry and Good Color
Labs/Micro/Reports
Lab Data
07/04/23 04:13
Laboratory Results
07/03/23
11:13
pH 7.29 L
pCO2 19 L
pO2 59 L*
HCO3 9.1 L*
O2 Delivery Level Room air
Microbiology
07/02/23 23:20 Blood/Venous Blood Culture - Preliminary
Positive culture in progress
07/02/23 23:20 Blood/Venous Gram Stain - Preliminary
07/02/23 23:55 Blood/Venous Blood Culture - Preliminary
Positive culture in progress
07/02/23 23:55 Blood/Venous Gram Stain - Preliminary
--- NOTE | 2023-07-04 07:43 | PN.DE.MGMTRT ---
Insulin Management
- -
07/04/2023 Diabetes Management F/U:
63 year old male admitted 07/01 with fever, SUN, weakness, Euglycemic DKA with anion gap 25 on admission, BG 300. COVID testing in ER negative.
PMH: CAD s/p 2 PCI and CABG, Aortic valve, HTN, HCL, and T2DM. A1C 9.6%, Cr 1.8-->1.4-->0.7 today, eGFR >60
Was taking Jardiance 10 mg daily and metformin 1000 BID prior to admission.
GAP improved from 30 to 23-->13 this morning. Pt remains on DKA protocol, glucose 174 to 268, requiring 2 to 4 u its of insulin/hr
Will continue insulin infusion and reassess for readiness to transition from insulin drip, ideally when GAP closed x2 BMPs
Will not restart Jardiance.
Diabetes History
- -
Type of Diabetes: 2 requiring insulin
Pre-Admission Diabetes Regimen
07/03/23 07/03/23 07/03/23
08:22 11:40 12:49
Creatinine 1.1 Cancelled 0.9
07/03/23 07/03/23 07/03/23
16:24 20:22 23:42
Creatinine 0.9 0.8 0.8
07/04/23
04:13
Creatinine 0.7
Lab Results
Hemoglobin A1c 9.6 % (4.0-5.6) H 07/03/23 05:54
Insulin Pump Settings
IP Diabetes Regimen
07/03/23 07/03/23 07/03/23
08:14 08:22 09:27
Glucose 224 H
POC Glucose 200 H 209 H
07/03/23 07/03/23 07/03/23
10:24 11:36 11:40
Glucose Cancelled
POC Glucose 215 H 232 H
0507/03/23 07/03/23
12:40 12:49 13:36
Glucose 240 H
POC Glucose 220 H 209 H
07/03/23 07/03/23 07/03/23
14:50 15:30 16:24
Glucose 253 H
POC Glucose 204 H 203 H
07/03/23 07/03/23 07/03/23
16:38 17:42 18:34
Glucose
POC Glucose 270 H 230 H 225 H
07/03/23 07/03/23 07/03/23
19:36 20:09 20:22
Glucose 213 H
POC Glucose 213 H 201 H
07/03/23 07/03/23 07/03/23
21:29 22:35 23:40
Glucose
POC Glucose 209 H 248 H 352 H
07/03/23 07/04/23 07/04/23
23:42 00:36 01:32
Glucose 223 H
POC Glucose 202 H 268 H
07/04/23 07/04/23 07/04/23
02:26 03:39 04:13
Glucose 192 H
POC Glucose 193 H 174 H
07/04/23 07/04/23 07/04/23
04:28 05:40 06:32
Glucose
POC Glucose 199 H 196 H 191 H
Meal type: Breakfast
Patient Education
[2023-07-04 07:56] LABS: Glucose - Point of Care 171 mg/dl (70-99)
[2023-07-04] MEDS: CRESTOR 40 MG PO (08:05)
[2023-07-04] MEDS: TOPROL XL 50 MG PO (08:05)
[2023-07-04] MEDS: HEPARIN 5000 UNITS SC (08:05)
[2023-07-04] MEDS: ASPIR LOW (ENTERIC COATED) 81 MG PO (08:05)
[2023-07-04 08:36] LABS: Glucose - Point of Care 225 mg/dl (70-99)
--- NOTE | 2023-07-04 09:00 | PTCARENOTE ---
pt alert and oriented, NSR - ST on monitor ,Bp 144/85, on room air sats 94% , lungs clear diminished , rare productive cough clear mucous , abdomen is round and soft denies abdominal pain , ambulated to BR and voided , oob in chair this am ,
generalized weakness , blood cultures positive for gram positive cocci , Dr Nicole and pharmacy notified, pt to start on Zosyn , ID consulted , anion gap at 0800 13
--- NOTE | 2023-07-04 09:00 | W.PN.HOSP.TC ---
Today's Communication/Plan
-
IV insulin drip. IV fluids. IV antibiotics. ID consult
Assessment / Plan
Assessment / Plan
Physical Exam
General: Acutely ill
HEENT: NormoCephalic, Moist mucous membranes, Atraumatic and Oxygen (2 L NC)
Respiratory: Clear and Non Labored Respirations; No Accessory Resp Muscle Use
Cardiac: S1/S2 and Regular Rhythm; No Murmur or Rub
GI: Soft, Non Tender, Non Distended and Normal Bowel Sounds; No Organomegaly
Rectal: Deferred by Provider
Musculoskeletal: No Clubbing, No Cyanosis and No Edema
Skin: No Rash
Neuro: Awake and AO x 3
Psych: Calm and Intact Judgment/Insight
A/P:
A/P:
# Euglycemic DKA with anion gap 25 on admission, BG 300; suspect related to Jardiance which he takes for his heart condition but also infectious process could have been contributed.
# h/o NIDDM
# Prerenal ANGELA
# Mild lactic acidosis present on admission
Bicarb 6 upon admission glucose 240--> latest bicarb still low at 13
Continue IV fluids and now with bicarbonate drip
Status post 3 L NSS IV fluid in ER
Cont insulin drip
Monitor BMP every 4 hours for anion gap closure x2
NPO for now
DM SYSTEM OPERATOR CS
Monitor lactic acid level
Monitor serum creatinine. Creatinine 1.8 on admission, from baseline 0.6
Discussed with first calender worker today
# Status blood cultures positive
IV broad-spectrum antibiotics
ID consulted
Follow-up blood cultures identification
# Leukocytosis
Likely infectious
WBC 19.7--> 10.5 today
# COVID positive the day prior to admission at work
COVID test negative in ER.
Does not appear to require any further treatment.
# CAD s/p 2 PCI and CABG
# HTN
Continue aspirin and statin
Hold BP meds currently with borderline blood pressure
Would NOT recommend to continue with Jardiance
# Paroxysmal atrial fibrillation
#Obstructive sleep apnea
# Aortic valve replacement
#Hypertension
# Hypercholesterolemia
statin
Full code
DVT ppx: HSQ
Total Critical Care Time 35 minutes. I was immediately available to the patient and staff. I personally examined, reviewed labs, diagnostic images/reports, interpretations, treatment plans, discussed patient care with other providers and family
or caregivers (if patient is unable to make decisions), entered orders as appropriate and documented the medical record.
Anticipated Discharge: > 48 hours
Subjective/Interval History
-
Date of Service: July 04, 2023
Patient does not feel well overall but does not elaborate in details. No chest pain or shortness of breath. No nausea or vomiting.
Objective Data
-
Labs:
Laboratory Results
07/03/23 07/04/23 07/04/23
23:42 04:13 08:22
WBC 10.5
Hgb 13.7
Hct 39.9
Plt Count 197
Sodium 138 138 Pending
Potassium 3.9 4.0 Pending
Chloride 115 H 116 H Pending
Carbon Dioxide 7 L* 9 L* Pending
BUN 26 H 24 H Pending
Creatinine 0.8 0.7 Pending
Glucose 223 H 192 H Pending
Calcium 8.4 8.5 Pending
Vital Signs:
Vital Signs
Temp Pulse Resp BP Pulse Ox
97.7 F 107 20 145/89 98
07/04/23 03:18 07/04/23 08:05 07/04/23 05:00 07/04/23 08:05 07/04/23 05:00
I&O
07/03/23 07/04/23 07/05/23
06:59 06:59 06:59
Intake Total 3305 / 3305
Output Total 875 / 875 2800 / 2800
Balance -875 / -747 505 / 505
[2023-07-04 09:11] LABS: Blood Urea Nitrogen 22 mg/dl (9-20); Calcium 8.3 mg/dl (8.4-10.2); Carbon Dioxide 13 mmol/L (22-30); Chloride 115 mmol/L (98-107); Estimated Creatinine Clearance 98 ml/min; Glucose 188 mg/dl (70-99); Potassium 3.8 mmol/L (3.5-5.1); Sodium 140 mmol/L (135-145); eGFR > 60.00
[2023-07-04] MEDS: ZOSYN 50 IV ×3 (10:30→21:32)
[2023-07-04] MEDS: KCL 40 MEQ PO (10:30)
[2023-07-04] MEDS: NOVOLIN R INSULIN INFUSION 100 IV (10:34)
[2023-07-04 10:37] LABS: Glucose - Point of Care 186 mg/dl (70-99)
[2023-07-04] MEDS: SODIUM BICARBONATE 1075 MEQ IV ×2 (11:29→20:40)
[2023-07-04] MEDS: D5/0.45%NACL IV (11:31)
[2023-07-04 11:40] LABS: Glucose - Point of Care 183 mg/dl (70-99)
[2023-07-04 12:45] LABS: Glucose - Point of Care 191 mg/dl (70-99)
--- NOTE | 2023-07-04 13:20 | CON.ID ---
Consultation
-
Date/Time Consultation Requested: 07/04/2023 1036
Date/Time Consultation Performed: 07/04/2023 1320
Requesting Provider: Dr. Goodson
Performing Provider: Dr. Downing
Reason for Consultation: Bacteremia
Chief Complaint / Past History
History of Present Illness
Giovanni Scanlon is a 63-year-old man being evaluated at the request of Dr. Goodson in regards to bacteremia. History is obtained from chart review, along with patient interview.
The patient has a significant past medical history of CAD with a history of PA x 2, along with valvular heart disease, and is status post AVR in 06/2022. He reports he was in his usual state of health until approximately 3 days ago when he began to
develop severe fatigue. Over the next 2 days the fatigue grew worse with associated anorexia and occasional rigors. He states he was tested for COVID at work and found to be positive. He was evaluated by his PCP 2 days ago and placed on a
medication which she does not remember at the present time. Ultimately, because of confusion and feeling so ill he presented to the emergency room for further evaluation.
At admission, blood cultures were obtained, which have now been found to be positive for gram-positive cocci in pairs and chains. Infectious Diseases is asked to comment on further workup and antibiotic management.
Patient admits to some cough, with clear sputum.
Past History
Additional Past Medical History:
CAD; Hx PA x 2
HTN
Dyslipidemia
DM
Hx aortic stenosis
Additional Past Surgical History:
PCI
CABG x 2
AVR ([facility]; 06/2022)
Allergy History:
clopidogrel [From Plavix] Allergy (Verified 07/03/23 00:21)
SWELLING AND RASH
Medications Reviewed: Yes
Current Antibiotics:
Zosyn
Social History
Tobacco: Non-Smoker
Alcohol: None
Drug: None
Personal:
Living: With Family
Employment: Employed
Review of Systems
Vital Signs
Temp Pulse Resp BP Pulse Ox
97.7 F 107 20 145/89 98
07/04/23 03:18 07/04/23 08:05 07/04/23 05:00 07/04/23 08:05 07/04/23 05:00
Physical Exam
Physical Exam
Constitutional: No Acute Distress, Comfortable and Non-toxic
Head: Normocephalic
Eyes: Pupils Equal, Pupils Round, No Conjunctival Hemorrhage and Sclera Anicteric
Oral: No Thrush and No Ulcers
Cardiovascular: S1/S2; Negative S3/S4 or Murmur
Pulmonary: Non Labored; Negative Wheezes, Rales or Rhonchi
Gastrointestinal: Soft, Non Tender, Non Distended, Normal Bowel Sounds, No Rebound and No Guarding
Genito-Urinary: Negative Panchal or CVA Tenderness
Extremities: Negative Edema, Cyanosis, Erythema, Splinter Hemorrhage, Venous Insufficiency or Janeway Lesions
Musculoskeletal: Negative Joint Swelling or Joint Effusion
Skin: Warm and Dry; Negative Rash or Jaundice
Wound: None
Neurological: Awake, Alert and Oriented
Psychological: Calm
Lab / Diagnostic Study Results
07/04/23 04:13
Abs Immat Gran (auto) 0.1 10^3/uL (0-0.05) H 07/04/23 04:13
Absolute Neuts (auto) 8.4 10^3/uL (1.4-6.5) H 07/04/23 04:13
Absolute Lymphs (auto) 0.9 10^3/uL (1.2-3.4) L 07/04/23 04:13
Absolute Monos (auto) 1.0 10^3/uL (0.1-0.6) H 07/04/23 04:13
Absolute Basos (auto) 0.1 10^3/uL (0-0.2) 07/04/23 04:13
Immature Gran % 1.2 % (0-0.5) H 07/04/23 04:13
Neutrophils % 80.2 % (42.2-75.2) H 07/04/23 04:13
Lymphocytes % 8.2 % (20.5-51.1) L 07/04/23 04:13
Monocytes % 9.7 % (1.7-9.3) H 07/04/23 04:13
Eosinophils % 0.0 % (0-6) 07/04/23 04:13
Basophils % 0.7 % (0-2) 07/04/23 04:13
PT 16.0 Sec (11.4-14.6) H 07/03/23 05:54
INR 1.30 07/03/23 05:54
Lactic Acid 0.9 mmol/L (0.7-2.0) 07/03/23 05:54
Procalcitonin 1.64 ng/ml (0.0-0.25) H 07/03/23 12:08
Ur Squamous Epith Cells 3-5 /LPF (Few) 07/02/23 23:49
Microbiology Results
Micro:
07/04/23 11:27 Respiratory Culture - Final
Sputum Gram Stain - Final
07/02/23 23:55 Blood Culture - Preliminary
Blood/Venous Positive culture in progress
Gram Stain - Final
07/02/23 23:20 Blood Culture - Preliminary
Blood/Venous Positive culture in progress
Gram Stain - Final
07/02/23 23:49 Urine Culture - Final
Urine
Imaging:
07/02/2023 CXR (2 view): Lungs are clear. No focal airspace process or pleural effusion. No pneumothorax seen. Please see full dictation for additional detail. Film personally viewed.
Assessment / Plan
Bacteremia
Leukocytosis; improved
Encephalopathy
- Suspect TME
CAD; Hx PA x 2
HTN
Dyslipidemia
DM
Hx aortic stenosis
Recommendations:
Continue with empiric Zosyn for now.
Repeat blood cultures x 2 now.
Await further culture data to guide antimicrobial selection/de-escalation.
Further recommendations as additional data is returned.
Care Review
Plan reviewed with: Physician (Critical Care)
[2023-07-04 13:47] LABS: Blood Urea Nitrogen 20 mg/dl (9-20); Calcium 8.1 mg/dl (8.4-10.2); Carbon Dioxide 13 mmol/L (22-30); Chloride 114 mmol/L (98-107); Estimated Creatinine Clearance 98 ml/min; Glucose 190 mg/dl (70-99); Potassium 3.9 mmol/L (3.5-5.1); Sodium 137 mmol/L (135-145); eGFR > 60.00
[2023-07-04 13:48] LABS: Glucose - Point of Care 195 mg/dl (70-99)
[2023-07-04] MEDS: TYLENOL 650 MG PO (14:04)
[2023-07-04 14:45] LABS: Glucose - Point of Care 183 mg/dl (70-99)
[2023-07-04 15:37] LABS: Glucose - Point of Care 203 mg/dl (70-99)
--- NOTE | 2023-07-04 15:56 | PTCARENOTE ---
pt continues on insulin gtt , anion gap at 12:30 10 , pt continues to be NPO , pt seen by diabetic SCRAPER LOADER OPERATOR , pt co generalized weakness and fatigue
[2023-07-04] MEDS: LOVENOX 40 MG SC (16:57)
[2023-07-04 17:04] LABS: Glucose - Point of Care 176 mg/dl (70-99)
[2023-07-04 17:29] LABS: Blood Urea Nitrogen 19 mg/dl (9-20); Calcium 7.8 mg/dl (8.4-10.2); Carbon Dioxide 16 mmol/L (22-30); Chloride 111 mmol/L (98-107); Estimated Creatinine Clearance 98 ml/min; Glucose 177 mg/dl (70-99); Potassium 3.7 mmol/L (3.5-5.1); Sodium 136 mmol/L (135-145); eGFR > 60.00
[2023-07-04 17:44] LABS: Glucose - Point of Care 196 mg/dl (70-99)
--- NOTE | 2023-07-04 18:21 | PTCARENOTE ---
latest BMP anion gap now 9 , pt visiting , updated on current plan of care and condition
[2023-07-04 18:38] LABS: Glucose - Point of Care 177 mg/dl (70-99)
[2023-07-04 19:44] LABS: Glucose - Point of Care 172 mg/dl (70-99)
[2023-07-04 20:43] LABS: Glucose - Point of Care 153 mg/dl (70-99)
[2023-07-04] MEDS: MELATONIN 10 MG PO (21:32)
[2023-07-04 21:43] LABS: Glucose - Point of Care 158 mg/dl (70-99)
--- NOTE | 2023-07-04 22:00 | PTCARENOTE ---
Assumed care of patient at 1900. Resting comfortably in bed. Only complaint is difficulty sleeping. Order for Melatonin obtained. Patient remains on Insulin gtt for DKA protocol. IVFs with Bicarb infusing as ordered.
[2023-07-04 22:41] LABS: Glucose - Point of Care 150 mg/dl (70-99)
[2023-07-04 23:41] LABS: Glucose - Point of Care 156 mg/dl (70-99)
[2023-07-05] VITALS (15 sets, daily range): BP systolic 115–148; BP diastolic 70–91; BMI 29.7
--- NOTE | 2023-07-05 00:30 | PTCARENOTE ---
Assessment unchanged. Blood sugars and vitals stable.
[2023-07-05 00:38] LABS: Glucose - Point of Care 176 mg/dl (70-99)
[2023-07-05 01:41] LABS: Glucose - Point of Care 175 mg/dl (70-99)
[2023-07-05 02:34] LABS: Glucose - Point of Care 179 mg/dl (70-99)
[2023-07-05 04:00] LABS: Glucose - Point of Care 124 mg/dl (70-99)
[2023-07-05 04:01] LABS: % Basophils 0.4 % (0-2); % Eosinophils 0.2 % (0-6); % Immature Granulocytes 1.6 % (0-0.5); % Lymphocytes 16.2 % (20.5-51.1); % Monocytes 11.2 % (1.7-9.3); % Neutrophils 70.4 % (42.2-75.2); Absolute Immature Granulocytes 0.1 10^3/uL (0-0.05); Absolute Lymphocytes 1.3 10^3/uL (1.2-3.4); Absolute Monocytes 0.9 10^3/uL (0.1-0.6); Absolute Neutrophils 5.6 10^3/uL (1.4-6.5); Hematocrit 35.3 % (39.0-52.0); Hemoglobin 12.1 g/dL (13.0-18.0); Mean Corp Hgb Conc. 34.3 g/dL (33.0-37.0); Mean Corpuscular Volume 84.7 fL (80.0-94.0); Mean Platelet Volume 10.2 fL (7.4-10.4); Nucleated Red Blood Cells % 0 % (-); Platelet Count 176 10^3/uL (130-400); Red Blood Cell Count 4.17 10^6/uL (4.70-6.10); Red Cell Dist. Width 14.5 % (11.5-14.5)
[2023-07-05] MEDS: SODIUM BICARBONATE 1075 MEQ IV (04:04)
[2023-07-05] MEDS: ZOSYN 50 IV ×4 (04:05→21:40)
--- NOTE | 2023-07-05 04:15 | PTCARENOTE ---
Patient assisted to bathroom to wash up. VSS. AM labs sent.
[2023-07-05 04:25] LABS: ALT (SGPT) 28 U/L (0-50); AST (SGOT) 35 U/L (17-59); Albumin 2.7 g/dl (3.5-5.0); Alkaline Phosphatase 66 U/L (38-126); Blood Urea Nitrogen 14 mg/dl (9-20); Calcium 7.9 mg/dl (8.4-10.2); Carbon Dioxide 20 mmol/L (22-30); Chloride 111 mmol/L (98-107); Estimated Creatinine Clearance 98 ml/min; Glucose 169 mg/dl (70-99); Magnesium 2.4 mg/dl (1.6-2.3); Potassium 3.4 mmol/L (3.5-5.1); Sodium 138 mmol/L (135-145); Total Bilirubin 0.5 mg/dl (0.2-1.3); Total Protein 5.5 g/dl (6.3-8.2); eGFR > 60.00
[2023-07-05 04:46] LABS: Glucose - Point of Care 169 mg/dl (70-99)
[2023-07-05] MEDS: KCL 40 MEQ PO (05:37)
--- NOTE | 2023-07-05 05:40 | PTCARENOTE ---
Potassium 3.4. 40meq PO KCl ordered.
[2023-07-05 05:48] LABS: Glucose - Point of Care 175 mg/dl (70-99)
[2023-07-05 06:41] LABS: Glucose - Point of Care 179 mg/dl (70-99)
--- NOTE | 2023-07-05 07:23 | PN.DE.MGMTRT ---
Insulin Management
- -
07/05/2023 Diabetes Management F/U:
63 year old male admitted 07/01 with fever, SUN, weakness, Euglycemic DKA with anion gap 25 on admission, BG 300. COVID testing in ER negative.
PMH: CAD s/p 2 PCI and CABG, Aortic valve, HTN, HCL, and T2DM. A1C 9.6%, Cr 1.8-->1.4-->0.7 today, eGFR >60
Was taking Jardiance 10 mg daily and metformin 1000 BID prior to admission.
Pt awake, A/O x3, sitting up in bed. Able to discuss diabetes mgt. States he was taking Soliqua with Metformin at the time that his diabetes was out of control with 'super high A1C'. He states that he made some changes with his diet and that his
numbers improved and he was taken off Soliqua and started on Jardiance.
GAP closed per AM labs. Pt remains on DKA protocol, glucose 174 to 268, requiring 2 to 4 u its of insulin/hr
Will transition off insulin drip to SQ insulin. Give Lantus 15 units NOW.
Discussed with pt options or diabetes management and he opted for insulin and oral regimen combo.
Will start Lantus 15 units @ HS. Glipizide 5mg BID and resume Metformin 1000mg BID, 1st dose NOW. Cont low corrective insulin with meals
Pt was made aware that he may need AC insulin if his preprandial glucose levels are not relatively controlled and he was agreeable.
Will not restart Jardiance.
Diabetes plan of care was discussed in detail w/pt. States he has a meter -OneTouch but the battery . H
Pt will receive a new meter with insulin instructions by Clara- ARACELI today
Diabetes History
- -
Type of Diabetes: 2 requiring insulin
Pre-Admission Diabetes Regimen
07/04/23 07/04/23 07/04/23
08:22 13:10 16:53
Creatinine 0.7 0.7 0.7
07/05/23
03:52
Creatinine 0.7
Lab Results
Hemoglobin A1c 9.6 % (4.0-5.6) H 07/03/23 05:54
Insulin Pump Settings
IP Diabetes Regimen
07/04/23 07/04/23 07/04/23
07:44 08:22 08:24
Glucose 188 H
POC Glucose 171 H 225 H
07/04/23 07/04/23 07/04/23
10:25 11:27 12:33
Glucose
POC Glucose 186 H 183 H 191 H
07/04/23 07/04/23 07/04/23
13:10 13:37 14:34
Glucose 190 H
POC Glucose 195 H 183 H
07/04/23 07/04/23 07/04/23
15:25 16:53 17:32
Glucose 177 H
POC Glucose 203 H 176 H 196 H
07/04/23 07/04/23 07/04/23
18:27 19:33 20:32
Glucose
POC Glucose 177 H 172 H 153 H
07/04/23 07/04/23 07/04/23
21:30 22:29 23:29
Glucose
POC Glucose 158 H 150 H 156 H
07/05/23 07/05/23 07/05/23
00:26 01:30 02:22
Glucose
POC Glucose 176 H 175 H 179 H
07/05/23 07/05/23 07/05/23
03:43 03:52 04:34
Glucose 169 H
POC Glucose 124 H 169 H
07/05/23 07/05/23
05:36 06:31
Glucose
POC Glucose 175 H 179 H
Patient Education
[2023-07-05 07:45] LABS: Glucose - Point of Care 178 mg/dl (70-99)
--- NOTE | 2023-07-05 08:20 | PTCARENOTE ---
Assumed care of pt at 0715 following shift report. Pt received resting quietly in bed. Denies c/o pain or SOB. No distress noted. Insulin gtt and IVF infusing as ordered. Physical assessment completed as documented. TT to DM JAVASCRIPT DEVELOPER w/ update on pt's
current anion gap calculation. Orders received. Call renetta w/in pt reach and safe environment maintained.
--- NOTE | 2023-07-05 08:35 | W.PN.ID1 ---
Date of Service
Date of Service: July 05, 2023
Today's Communication
Continue empiric Zosyn (d#2)
Assessment / Plan
Bacteremia - GPC's in pairs/chains
Leukocytosis; improved
Encephalopathy
- Suspect TME
- improved
Hx AVR (bovine, HUP; 06/2022)
CAD; Hx [place] x 2
HTN
Dyslipidemia
DM
Hx aortic stenosis
Recommendations:
Continue with empiric Zosyn (day #2) for now.
Repeat blood cultures pending.
Await further culture data to guide antimicrobial selection/de-escalation.
Further recommendations as additional data is returned.
����������������������������������������������������������
Chief Complaint
-: Bacteremia
Subjective / Review of Systems
Patient seen and examined. Reports overall feeling improved today.
Review of Systems: No Fever, No Chills, No Cough and No Sputum Production
Vital Signs / Physical Exam
Vital Signs
Vital Signs
Temp Pulse Resp BP Pulse Ox
98.0 F 77 19 140/86 96
07/05/23 07:50 07/05/23 06:00 07/05/23 06:00 07/05/23 06:00 07/05/23 06:00
Physical Exam
Constitutional: No Acute Distress, Comfortable and Non-toxic
Head: Normocephalic
Eyes: No Conjunctival Hemorrhage and Sclera Anicteric
Cardiovascular: S1/S2; Negative S3/S4 or Murmur
Pulmonary: Clear; Negative Wheezes, Rales, Rhonchi or Coarse
Gastrointestinal: Soft, Non Tender and Non Distended
Extremities: Negative Edema, Splinter Hemorrhage or Janeway Lesions
Neurological: Awake, Alert and Oriented
Psychological: Calm
Objective Data
Lab Data
Lab Results
07/05/23 03:52
07/05/23 03:52
PT 16.0 Sec (11.4-14.6) H 07/03/23 05:54
INR 1.30 07/03/23 05:54
APTT 30.6 Sec (23.4-35.0) 07/03/23 05:54
Estimated Creat Clear 98 ml/min 07/05/23 03:52
Lactic Acid 0.9 mmol/L (0.7-2.0) 07/03/23 05:54
Total Bilirubin 0.5 mg/dl (0.2-1.3) 07/05/23 03:52
AST 35 U/L (17-59) 07/05/23 03:52
ALT 28 U/L (0-50) 07/05/23 03:52
Alkaline Phosphatase 66 U/L (38-126) 07/05/23 03:52
Most recent labs reviewed.
Micro Results:
07/04/23 13:59 Blood Culture - Pending
Blood/Venous
07/04/23 13:59 Blood Culture - Pending
Blood/Venous
07/04/23 11:27 Respiratory Culture - Final
Sputum Gram Stain - Final
07/02/23 23:55 Blood Culture - Preliminary
Blood/Venous Positive culture in progress
Gram Stain - Final
07/02/23 23:20 Blood Culture - Preliminary
Blood/Venous Positive culture in progress
Gram Stain - Final
07/02/23 23:49 Urine Culture - Final
Urine
Imaging:
07/02/2023 CXR (2 view): Lungs are clear. No focal airspace process or pleural effusion. No pneumothorax seen. Please see full dictation for additional detail. Film personally viewed.
[2023-07-05] MEDS: LANTUS 0.149999999999999994 UNITS SC ×2 (08:39→21:41)
--- NOTE | 2023-07-05 08:40 | W.PN.HOSP.TC ---
Addendum entered and electronically signed by Vaughn Peraza MD 07/06/23 12:08:
Correction--> patient. Critical care time on this encounter. Total time was 52 minutes.
Original Note:
Today's Communication/Plan
-
Long-acting and short acting insulin. Continue IV antibiotics. Follow-up cultures
Assessment / Plan
Assessment / Plan
Physical Exam
General: Acutely ill
HEENT: NormoCephalic, Moist mucous membranes, Atraumatic and Oxygen (2 L NC)
Respiratory: Clear and Non Labored Respirations; No Accessory Resp Muscle Use
Cardiac: S1/S2 and Regular Rhythm; No Murmur or Rub
GI: Soft, Non Tender, Non Distended and Normal Bowel Sounds; No Organomegaly
Rectal: Deferred by Provider
Musculoskeletal: No Clubbing, No Cyanosis and No Edema
Skin: No Rash
Neuro: Awake and AO x 3
Psych: Calm and Intact Judgment/Insight
A/P:
A/P:
# Euglycemic DKA with anion gap 25 on admission, BG 300; suspect related to Jardiance which he takes for his heart condition but also infectious process could have been contributed.
# h/o NIDDM
# Prerenal ANGELA
# Mild lactic acidosis present on admission
Anion gap closed today
IV insulin drip and we will transition to long-acting and short acting insulin
Transfer out of ICU today
Prior to today:
Bicarb 6 upon admission glucose 240--> latest bicarb still low at 13
Continue IV fluids and now with bicarbonate drip
Status post 3 L NSS IV fluid in ER
Cont insulin drip
Monitor BMP every 4 hours for anion gap closure x2
NPO for now
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
Monitor lactic acid level
Monitor serum creatinine. Creatinine 1.8 on admission, from baseline 0.6
Discussed with final dressing cutter today
# Status blood cultures positive
IV broad-spectrum antibiotics of IV Zosyn
ID consulted and appreciated input
Follow-up blood cultures identification and repeat blood cultures pending
#History of bio AVR
# Leukocytosis
Likely infectious
WBC 19.7--> 8 today
# COVID positive the day prior to admission at work
COVID test negative in ER.
Does not appear to require any further treatment.
# CAD s/p 2 PCI and CABG
# HTN
Continue aspirin and statin
Hold BP meds currently with borderline blood pressure
Would NOT recommend to continue with Jardiance
# Paroxysmal atrial fibrillation
#Obstructive sleep apnea
#Hypertension
# Hypercholesterolemia
statin
Full code
DVT ppx: HSQ
Total Critical Care Time 35 minutes. I was immediately available to the patient and staff. I personally examined, reviewed labs, diagnostic images/reports, interpretations, treatment plans, discussed patient care with other providers and family
or caregivers (if patient is unable to make decisions), entered orders as appropriate and documented the medical record.
Anticipated Discharge: > 48 hours
Subjective/Interval History
-
Date of Service: July 05, 2023
No new complaints today. Overall feels better today. No chest pain or shortness of breath. Afebrile
Objective Data
-
Labs:
Laboratory Results
07/05/23
03:52
WBC 8.0
Hgb 12.1 L
Hct 35.3 L
Plt Count 176
Sodium 138
Potassium 3.4 L
Chloride 111 H
Carbon Dioxide 20 L
BUN 14
Creatinine 0.7
Glucose 169 H
Calcium 7.9 L
Total Bilirubin 0.5
AST 35
ALT 28
Alkaline Phosphatase 66
Vital Signs:
Vital Signs
Temp Pulse Resp BP Pulse Ox
98.0 F 77 19 140/86 96
07/05/23 07:50 07/05/23 06:00 07/05/23 06:00 07/05/23 06:00 07/05/23 06:00
I&O
07/04/23 07/05/23 07/06/23
06:59 06:59 06:59
Intake Total 3305 / 3307 3074 / 3074
Output Total 2800 / 2800 1325 / 1325
Balance 505 / 507 1749 / 1749
[2023-07-05] MEDS: TOPROL XL 50 MG PO (08:42)
[2023-07-05] MEDS: CRESTOR 40 MG PO (08:42)
[2023-07-05] MEDS: ASPIR LOW (ENTERIC COATED) 81 MG PO (08:42)
[2023-07-05 08:52] LABS: Glucose - Point of Care 169 mg/dl (70-99)
--- NOTE | 2023-07-05 09:10 | W.PN.INTV ---
Today's Communication / Plan
Recommendations
Blood cultures noted, continue Zosyn
ID consulted
Continue nightly CPAP
Patient being downgraded out of the ICU to telemetry. Senior Data Quality Analyst/Pulmonary service will now sign off. Please reconsult if there are any additional questions/concerns, or if patient's respiratory status deteriorates.
Assessment
-
Patient is a 63-year-old male with previous history of CAD status post CABG, aortic valve replacement, JONNATHAN on CPAP presenting to ER for generalized weakness, shortness of breath and fever/chills since wednesday 06/28. He tested self tested
positive for COVID on friday 06/30. In the ER, he was noted to have hyperglycemia with anion gap metabolic acidosis consistent with DKA. He is placed on an insulin drip and admitted to ICU.
Impression:
GPC Bacteremia/sepsis
DKA
AGMA + NAGMA likely from sepsis
Subcute COVID infection, neg PCR test on admission
ANGELA, creat 2.0 (baseline 0.6-0.9)
Lactic acidosis
Leukocytosis
Generalized malaise/fatigue
SOB
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
Hyperlipidemia
Hypertension
Non Q-Wave ME
PAF
Inflammatory arthritis
Diabetes type 2
CAD in robinson artery S/P Catheterization Stents x2
Heart murmur
History of ME
Angioplasty(2004)
Shoulder Surgery
CABG and Aortic valve [place] @[place] 06/25/22
JONNATHAN on CPAP, HST 06/30/20 AHI 72.5/63%
Plan
DKA, admitting BS elevated, AG >20
Bicarb <5. 3+ ketones in urine
Started on insulin drip, weaned off
Diabetic nurse for insulin recommendations
ADA diet
H/o poorly controlled diabetes, hopeful transition to home meds
Trigger may be COVID illness/bacteremia
Hba1c 9.6%
GI ppx: n/a
Oxygen requirements: room air
Continue supplemental O2 as needed, wean as tolerated
Encourage daily proning and OOB
COVID tested + 06/30, symptoms began 06/28
CXR clear, he seems improved from a symptomatic place and on RA.
COVID testing in ER negative 07/01.
I do not think patient requires treatment for this or isolation/discussed with IP
Patient can wear mask/remove isolation/supportive care
Now with new bacteremia, GPC in pairs 2/2 bottles
H/o AVR, consult ID
Continue antibiotics with Zosyn
Prior pulmonary history: JONNATHAN on CPAP
Resume home CPAP
Hemodynamically stable, not requiring pressors.
Prior h/o cardiac disease--HTN/CAD, resume home meds
ECHO in past reviewed/stable
Creat at baseline, follow UO
Acid/base status: AGMA / DKA, follow until AG <12
Change IVFs with bicarb as he likely has concurrent NAGMA from sepsis
DVT ppx SCDs + LMWH
Patient being downgraded out of the ICU to telemetry. Senior Data Quality Analyst/Pulmonary service will now sign off. Thank you for allowing us to be involved in the care of this patient. Please reconsult if there are any additional questions/concerns, or if
patient's respiratory status deteriorates.
Diagnostic Data
Chest X-Ray: 03/29/10- No active cardiopulmonary disease
CT Scan: AP 10/10/13- Diverticulosis with findings suspicious for diverticulitis of the proximal sigmoid colon. No accompanying abnormal focal fluid collection. Small fat only containing umbilical hernia.
Right renal cyst. Mild diffuse fatty infiltration of the liver.
Echo: 06/14/23- Normal left ventricular size, wall thickness and systolic function. No regional wall motion abnormalities are seen. LV ejection fraction is 55-60% by visual assessment. Normal diastolic function. Prosthetic aortic valve. Peak/mean
gradients across the aortic valve are 17/9 mmHg. Trace aortic regurgitation is seen. Since echocardiogram October 2021, patient is now status post AVR.
11/10/21- 1. Normal left ventricular size and systolic function. Estimated LV ejection fraction 55 to 60% by visual estimation. No obvious regional wall motion abnormalities. Normal diastolic function.
2. Normal right ventricular size and function.
3. Calcified, trileaflet aortic valve with decreased excursion. Peak and mean gradients across the aortic valve are 70 and 40 mmHg respectively with a calculated aortic valve area of 0.8 cm2 using the continuity equation, dimensionless index of
0.2 consistent with severe aortic stenosis. Mild aortic regurgitation.
4. Mild tricuspid regurgitation with estimated pulmonary artery pressure of 25 to 30 mmHg, assuming a right atrial pressure of 3 mmHg.
5. No pericardial effusion.
6. Compared to prior echocardiogram on 05/10/2021, mean gradient across aortic valve has increased to 40mmHg consistent with severe aortic stenosis.
PFT's:
Reports and relevant images were personally reviewed.
-----
Total time spent today was 55 minutes for this encounter. Time includes reviewing laboratory test/imaging results, reviewing pertinent medical records, obtaining and reviewing medical history, performing an appropriate exam, ordering medications,
tests and procedures. Time also includes documentation of this encounter, coordinating patient care and communicating with other healthcare professionals. Total time does not include separately billed tests performed on this date of service.
Subjective Dataa
Subjective Data
Date of Service:
Date of Service: July 05, 2023
Chief Complaint: Senior Data Quality Analyst Follow Up
Subjective:
Seen and evaluated today at bedside. No complaints today. Denies chest pain, headache, fevers or chills.
Review of Systems
General: Other (Negative unless mentioned above)
Objective Data
Data Reviewed
Vital Signs / I&O / Oxygen:
Vital Signs
Temp Pulse Resp BP Pulse Ox
98.0 F 82 19 133/87 96
07/05/23 07:50 07/05/23 08:42 07/05/23 06:00 07/05/23 08:42 07/05/23 06:00
Intake and Output
07/04/23 07/05/23 07/06/23
06:59 06:59 06:59
Intake Total 3305 / 3307 3074 / 3074
Output Total 2800 / 2800 1325 / 1325 400 / 400
Balance 505 / 507 1749 / 1749 -400 / -400
SaO2 96
Nasal Cannula flow liters per 3
minute
Physical Exam
General: Comfortable and Other (NAD)
HEENT: Normocephalic, Anicteric and Moist Mucous Membranes
Cardiovascular: S1-S2
Respiratory: Clear and Non-Labored Respirations
GI: Soft, Non Distended and Non Tender
Neurology: AO x 3 and No Motor Deficits
Skin: Warm, Dry and Good Color
Labs/Micro/Reports
Lab Data
07/05/23 03:52
07/05/23 03:52
Microbiology
07/04/23 11:27 Sputum Respiratory Culture - Final
07/04/23 11:27 Sputum Gram Stain - Final
07/02/23 23:55 Blood/Venous Blood Culture - Preliminary
Positive culture in progress
07/02/23 23:55 Blood/Venous Gram Stain - Final
07/02/23 23:20 Blood/Venous Blood Culture - Preliminary
Positive culture in progress
07/02/23 23:20 Blood/Venous Gram Stain - Final
07/02/23 23:49 Urine Urine Culture - Final
[2023-07-05 09:53] LABS: Glucose - Point of Care 181 mg/dl (70-99)
[2023-07-05] MEDS: GLUCOPHAGE 1000 MG PO ×2 (10:11→17:41)
--- NOTE | 2023-07-05 10:43 | PTCARENOTE ---
IVF d/c'ed per order. Pt OOB to BR and then to chair. Using walker to ambulate - gait steady w/ walker although pt reports 'still feel a little weak' Call jackson w/in pt reach and pt encouraged to call for assistance if needed. Safe environment
maintained. Telemetry order noted- waiting on bed availability.
[2023-07-05 11:45] LABS: Glucose - Point of Care 166 mg/dl (70-99)
--- NOTE | 2023-07-05 12:00 | PTCARENOTE ---
Diabetes Education- A1C 9.6%. Giovanni is familiar with testing but asked for a new glucometer. Provided with and instructions given on the One Touch Verio Flex. Good return demonstration, lancing device increased to 5. To test FBS, 2 hr after one
meal/day (rotating which meal) and HS. Discussed action of Lantus insulin, importance to take at same time each night, reviewed injection sites. He has used Soliqua in the past, reviewed use of insulin pen and he feels he does not need to return
demonstrate. Discussed medications he will be discharged on. Education booklet with both RAFITA Ashley and my phone number for follow up questions. He is aware to follow up with his PCP. Information on outpt ed classes given.
[2023-07-05] MEDS: NOVOLOG FLEXPEN-MODERATE RESISTANCE 1 UNITS SC ×2 (12:59→17:41)
--- NOTE | 2023-07-05 13:11 | PTCARENOTE ---
Pt noted to have only eaten bites of breakfast- encouraged to order lunch and pt only placed minimal order 'I'm not really in the mood to eat'. Education provided to pt and his at bedside re: the importance of good nutrition in recovery and
management of chronic disease. Pt verbalized understanding 'I guess I'll order a little something more'
--- NOTE | 2023-07-05 13:24 | CM ---
CM following re: discharge planning.
Discussed in Rounds, reviewed pt's chart, met with pt. Per chart review, continue Long-acting and short acting insulin, continue IV antibiotics
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
D/C plan: home with anticipated no needs. Spouse to transport at discharge.
CM will follow with discharge plan updates as hospitalization progresses
--- NOTE | 2023-07-05 14:40 | PTCARENOTE ---
Transfer report given to 'Rosalva CHARLES' on 3W. Pt to be transferred to 337-2 via w/ personal belongings. No changes noted or new complaints received.
[2023-07-05 17:22] LABS: Glucose - Point of Care 172 mg/dl (70-99)
[2023-07-05] MEDS: GLUCOTROL 5 MG PO (17:41)
[2023-07-05] MEDS: LOVENOX 40 MG SC (18:08)
[2023-07-05 21:33] LABS: Glucose - Point of Care 124 mg/dl (70-99)
[2023-07-06] VITALS (8 sets, daily range): BP systolic 108–137; BP diastolic 66–86; PULSE 79–80; O2SAT 97
[2023-07-06] MEDS: ZOSYN 50 IV ×4 (03:43→22:04)
[2023-07-06 07:49] LABS: % Basophils 0.5 % (0-2); % Eosinophils 0.1 % (0-6); % Immature Granulocytes 1.8 % (0-0.5); % Lymphocytes 14.1 % (20.5-51.1); % Monocytes 7.8 % (1.7-9.3); % Neutrophils 75.7 % (42.2-75.2); Absolute Immature Granulocytes 0.2 10^3/uL (0-0.05); Absolute Lymphocytes 1.2 10^3/uL (1.2-3.4); Absolute Monocytes 0.7 10^3/uL (0.1-0.6); Absolute Neutrophils 6.5 10^3/uL (1.4-6.5); Hemoglobin 11.8 g/dL (13.0-18.0); Mean Corp Hgb Conc. 34.7 g/dL (33.0-37.0); Mean Corpuscular Hgb 29.1 pg (27.0-31.0); Mean Platelet Volume 10.1 fL (7.4-10.4); Nucleated Red Blood Cells % 0 % (-); Platelet Count 206 10^3/uL (130-400); Red Blood Cell Count 4.05 10^6/uL (4.70-6.10); Red Cell Dist. Width 14.4 % (11.5-14.5); White Blood Cell Count 8.5 10^3/uL (4.8-10.8)
--- NOTE | 2023-07-06 07:54 | W.PN.HOSP.TC ---
Today's Communication/Plan
-
IV antibiotics. Insulin management.
Assessment / Plan
Assessment / Plan
Physical Exam
General: Acutely ill
HEENT: NormoCephalic, Moist mucous membranes, Atraumatic and Oxygen (2 L NC)
Respiratory: Clear and Non Labored Respirations; No Accessory Resp Muscle Use
Cardiac: S1/S2 and Regular Rhythm; No Murmur or Rub
GI: Soft, Non Tender, Non Distended and Normal Bowel Sounds; No Organomegaly
Rectal: Deferred by Provider
Musculoskeletal: No Clubbing, No Cyanosis and No Edema
Skin: No Rash
Neuro: Awake and AO x 3
Psych: Calm and Intact Judgment/Insight
A/P:
A/P:
# Euglycemic DKA with anion gap 25 on admission, BG 300; suspect related to Jardiance which he takes for his heart condition but also infectious process could have been contributed.
# h/o NIDDM
# Prerenal ANGELA
# Mild lactic acidosis present on admission
Currently on long-acting and short acting insulin
Continue to monitor blood sugars
Prior to today:
Bicarb 6 upon admission glucose 240--> latest bicarb still low at 13
Continue IV fluids and now with bicarbonate drip
Status post 3 L NSS IV fluid in ER
Cont insulin drip
Monitor BMP every 4 hours for anion gap closure x2
NPO for now
DM PARK INTERPRETIVE SPECIALIST CS
Monitor lactic acid level
Monitor serum creatinine. Creatinine 1.8 on admission, from baseline 0.6
Discussed with inspector open die today
# Bacteremia
IV broad-spectrum antibiotics of IV Zosyn
ID consulted and appreciated input
Follow-up blood cultures identification and repeat blood cultures pending but appears no growth
Might need KOFFI down the line (prob after long weekend)
#History of bio AVR
# Leukocytosis
Likely infectious
WBC 19.7--> 8.5 today
# COVID positive the day prior to admission at work
COVID test negative in ER.
Does not appear to require any further treatment.
# CAD s/p 2 PCI and CABG
# HTN
Continue aspirin and statin
Hold BP meds currently with borderline blood pressure
Would NOT recommend to continue with Jardiance
# Paroxysmal atrial fibrillation
#Obstructive sleep apnea
#Hypertension
# Hypercholesterolemia
statin
Full code
DVT ppx: HSQ
Total time spent on today's encounter was 52 minutes which included time spent in counseling the patient/family regarding diagnosis and treatment plan as listed above, goals of care, and symptom management. Case was discussed with nursing staff,
specialists, and care coordinators/case management. All labs and imaging personally reviewed by me. Remainder the time spent in detailed review of previous records, lab data, imaging, and other medical provider documentation.
Anticipated Discharge: > 48 hours
Subjective/Interval History
-
Date of Service: July 06, 2023
Patient denies any new complaints. No chest pain or shortness of breath. Afebrile
Objective Data
-
Labs:
Laboratory Results
07/06/23
07:05
WBC 8.5
Hgb 11.8 L
Hct 34.0 L
Plt Count 206
Sodium Pending
Potassium Pending
Chloride Pending
Carbon Dioxide Pending
BUN Pending
Creatinine Pending
Glucose Pending
Calcium Pending
Vital Signs:
Vital Signs
Temp Pulse Resp BP Pulse Ox
97.8 F 75 18 108/66 98
07/06/23 03:00 07/06/23 03:00 07/06/23 03:00 07/06/23 03:00 07/06/23 03:00
I&O
07/05/23 07/06/23 07/07/23
06:59 06:59 06:59
Intake Total 3074 / 3201 1516 / 1516 480 / 480
Output Total 1325 / 1325 400 / 400
Balance 1749 / 1876 1116 / 1116 480 / 480
[2023-07-06 07:59] LABS: Glucose - Point of Care 140 mg/dl (70-99)
[2023-07-06 08:43] LABS: Blood Urea Nitrogen 12 mg/dl (9-20); Carbon Dioxide 23 mmol/L (22-30); Chloride 105 mmol/L (98-107); Estimated Creatinine Clearance 77 ml/min; Glucose 122 mg/dl (70-99); Potassium 3.5 mmol/L (3.5-5.1); Sodium 137 mmol/L (135-145); eGFR > 60.00
[2023-07-06] MEDS: NOVOLOG FLEXPEN-MODERATE RESISTANCE SC ×2 (08:51→17:19)
[2023-07-06] MEDS: GLUCOTROL 5 MG PO ×2 (08:52→17:18)
[2023-07-06] MEDS: ASPIR LOW (ENTERIC COATED) 81 MG PO (08:52)
[2023-07-06] MEDS: CRESTOR 40 MG PO (08:52)
[2023-07-06] MEDS: TOPROL XL 50 MG PO (08:52)
[2023-07-06] MEDS: GLUCOPHAGE 1000 MG PO ×2 (08:52→17:18)
--- NOTE | 2023-07-06 10:25 | W.PN.ID1 ---
Date of Service
Date of Service: July 06, 2023
Today's Communication
See below.
Assessment / Plan
Bacteremia - GPC's in pairs/chains
Leukocytosis; improved
Encephalopathy
- Suspect TME from DKA
- improved
Hx AVR (bovine, HUP; 06/2022)
CAD; Hx [place] x 2
HTN
Dyslipidemia
DM
Hx aortic stenosis
Recommendations:
Continue with empiric Zosyn (day #3) for now.
Repeat blood cultures negative to date.
Organism probably Streptococcus (periodontal source,pt reports he will need gum flap in near future).
Suspect will need KOFFI (nonurgent) to rule out IE which will impact antibiotic management.
����������������������������������������������������������
Chief Complaint
-: Bacteremia
Subjective / Review of Systems
Feeling better.
Vital Signs / Physical Exam
Vital Signs
Vital Signs
Temp Pulse Resp BP Pulse Ox
99.2 F 80 18 137/86 97
07/06/23 07:30 07/06/23 07:30 07/06/23 07:30 07/06/23 07:30 07/06/23 07:30
Physical Exam
Constitutional: No Acute Distress and Comfortable
Cardiovascular: Regular Rate and S1/S2
Pulmonary: Clear
Gastrointestinal: Soft, Non Tender and Non Distended
Extremities: Negative Edema
Neurological: AO x 3
Objective Data
Lab Data
Lab Results
07/06/23 07:05
07/06/23 07:05
PT 16.0 Sec (11.4-14.6) H 07/03/23 05:54
INR 1.30 07/03/23 05:54
APTT 30.6 Sec (23.4-35.0) 07/03/23 05:54
Estimated Creat Clear 77 ml/min 07/06/23 07:05
Lactic Acid 0.9 mmol/L (0.7-2.0) 07/03/23 05:54
Total Bilirubin 0.5 mg/dl (0.2-1.3) 07/05/23 03:52
AST 35 U/L (17-59) 07/05/23 03:52
ALT 28 U/L (0-50) 07/05/23 03:52
Alkaline Phosphatase 66 U/L (38-126) 07/05/23 03:52
Most recent labs reviewed.
Micro Results:
07/02/23 23:20 Blood Culture - Preliminary
Blood/Venous Positive culture in progress
Gram Stain - Final
07/04/23 13:59 Blood Culture - Preliminary
Blood/Venous No Growth in 24 hours- Final report to follow
07/04/23 13:59 Blood Culture - Preliminary
Blood/Venous No Growth in 24 hours- Final report to follow
07/04/23 11:27 Respiratory Culture - Final
Sputum Gram Stain - Final
07/02/23 23:55 Blood Culture - Preliminary
Blood/Venous Positive culture in progress
Gram Stain - Final
07/02/23 23:49 Urine Culture - Final
Urine
Imaging:
07/02/2023 CXR (2 view): Lungs are clear. No focal airspace process or pleural effusion. No pneumothorax seen. Please see full dictation for additional detail. Film personally viewed.
[2023-07-06 12:15] LABS: Glucose - Point of Care 168 mg/dl (70-99)
[2023-07-06] MEDS: NOVOLOG FLEXPEN-MODERATE RESISTANCE 1 UNITS SC (12:36)
[2023-07-06 17:19] LABS: Glucose - Point of Care 74 mg/dl (70-99)
[2023-07-06] MEDS: LOVENOX 40 MG SC (17:19)
[2023-07-06 21:32] LABS: Glucose - Point of Care 115 mg/dl (70-99)
[2023-07-06] MEDS: LANTUS 0.149999999999999994 UNITS SC (22:04)
[2023-07-07 03:35] VITALS: BP 119/69
[2023-07-07] MEDS: ZOSYN 50 IV (03:44)
[2023-07-07 05:30] LABS: % Basophils 0.4 % (0-2); % Eosinophils 0.2 % (0-6); % Immature Granulocytes 2.2 % (0-0.5); % Lymphocytes 17.2 % (20.5-51.1); % Monocytes 7.2 % (1.7-9.3); % Neutrophils 72.8 % (42.2-75.2); Absolute Immature Granulocytes 0.2 10^3/uL (0-0.05); Absolute Lymphocytes 1.7 10^3/uL (1.2-3.4); Absolute Monocytes 0.7 10^3/uL (0.1-0.6); Hemoglobin 11.7 g/dL (13.0-18.0); Mean Corp Hgb Conc. 33.4 g/dL (33.0-37.0); Mean Corpuscular Volume 86.6 fL (80.0-94.0); Mean Platelet Volume 9.9 fL (7.4-10.4); Nucleated Red Blood Cells % 0 % (-); Platelet Count 209 10^3/uL (130-400); Red Blood Cell Count 4.04 10^6/uL (4.70-6.10); Red Cell Dist. Width 14.2 % (11.5-14.5); White Blood Cell Count 9.6 10^3/uL (4.8-10.8)
[2023-07-07 05:53] LABS: Blood Urea Nitrogen 11 mg/dl (9-20); Calcium 7.9 mg/dl (8.4-10.2); Carbon Dioxide 27 mmol/L (22-30); Chloride 102 mmol/L (98-107); Estimated Creatinine Clearance 69 ml/min; Glucose 115 mg/dl (70-99); Potassium 3.7 mmol/L (3.5-5.1); Sodium 137 mmol/L (135-145); eGFR > 60.00
[2023-07-07 07:22] VITALS: BP 119/77
[2023-07-07 07:35] LABS: Glucose - Point of Care 125 mg/dl (70-99)
[2023-07-07] MEDS: NOVOLOG FLEXPEN-MODERATE RESISTANCE SC ×3 (08:59→18:04)
[2023-07-07] MEDS: GLUCOTROL 5 MG PO ×2 (09:00→16:06)
[2023-07-07] MEDS: TOPROL XL 50 MG PO (09:00)
[2023-07-07] MEDS: GLUCOPHAGE 1000 MG PO ×2 (09:00→16:06)
[2023-07-07] MEDS: ASPIR LOW (ENTERIC COATED) 81 MG PO (09:00)
[2023-07-07] MEDS: CRESTOR 40 MG PO (09:00)
--- NOTE | 2023-07-07 09:13 | W.PN.HOSP.TC ---
Today's Communication/Plan
-
IV antibiotics. Cardiology for KOFFI eval.
Assessment / Plan
Assessment / Plan
Physical Exam
General: No acute distress
HEENT: NormoCephalic, Moist mucous membranes, Atraumatic and Oxygen (2 L NC)
Respiratory: Clear and Non Labored Respirations; No Accessory Resp Muscle Use
Cardiac: S1/S2 and Regular Rhythm; No Murmur or Rub
GI: Soft, Non Tender, Non Distended and Normal Bowel Sounds; No Organomegaly
Rectal: Deferred by Provider
Musculoskeletal: No Clubbing, No Cyanosis and No Edema
Skin: No Rash
Neuro: Awake and AO x 3
Psych: Calm and Intact Judgment/Insight
A/P:
A/P:
# Euglycemic DKA with anion gap 25 on admission, BG 300; suspect related to Jardiance which he takes for his heart condition but also infectious process could have been contributed.
# h/o NIDDM
# Prerenal ANGELA
# Mild lactic acidosis present on admission
Blood sugars doing well--> blood sugars 115 this morning
Currently on long-acting and short acting insulin
Continue to monitor blood sugars
# Strep Oralis Bacteremia. Likely periodontal source of bacteremia.
IV broad-spectrum antibiotics streamlined to IV ceftriaxone.
ID consulted and appreciated input
Repeated blood cultures from 07/03 no growth
Cardio consulted today for possible KOFFI over the next couple days(tiger texted cardio today).
#History of bio AVR
# Leukocytosis
Likely infectious
WBC 19.7--> 9.6 today
# COVID positive the day prior to admission at work
COVID test negative in ER.
Does not appear to require any further treatment.
# CAD s/p 2 PCI and CABG
# HTN
Continue aspirin and statin
Hold BP meds currently with borderline blood pressure
Would NOT recommend to continue with Jardiance
# Paroxysmal atrial fibrillation
#Obstructive sleep apnea
#Hypertension
# Hypercholesterolemia
statin
Full code
DVT ppx: HSQ
Anticipated Discharge: > 48 hours
Subjective/Interval History
-
Date of Service: July 07, 2023
Patient overall doing well. No chest pain or shortness of breath. No nausea vomiting or diarrhea. Afebrile
Objective Data
-
Labs:
Laboratory Results
07/07/23
04:40
WBC 9.6
Hgb 11.7 L
Hct 35.0 L
Plt Count 209
Sodium 137
Potassium 3.7
Chloride 102
Carbon Dioxide 27
BUN 11
Creatinine 1.0
Glucose 115 H
Calcium 7.9 L
Vital Signs:
Vital Signs
Temp Pulse Resp BP Pulse Ox
98.1 F 95 19 119/77 97
07/07/23 07:22 07/07/23 07:22 07/07/23 07:22 07/07/23 07:22 07/07/23 07:22
I&O
07/06/23 07/07/23 07/08/23
06:59 06:59 06:59
Intake Total 1516 / 1516 2780 / 2780
Output Total 400 / 400
Balance 1116 / 1116 2780 / 2780
--- NOTE | 2023-07-07 09:52 | W.PN.ID1 ---
Date of Service
Date of Service: July 07, 2023
Today's Communication
Narrow Zosyn to ceftriaxone.
Recommend KOFFI.
Assessment / Plan
Strep mitis/oralis bacteremia
Leukocytosis; resolved
Encephalopathy
- Suspect TME from DKA
- resolved
Hx AVR (bovine, HUP; 06/2022)
CAD; Hx NM x 2
HTN
Dyslipidemia
DM
Hx aortic stenosis
Recommendations:
Narrow Zosyn (day #4) to ceftriaxone 2gIV q24h.
Repeat blood cultures negative to date.
Suspect periodontal source of bacteremia; pt reports he will need gum flap in near future.
Recommend KOFFI (nonurgent) to rule out IE which will impact antibiotic management.
����������������������������������������������������������
Chief Complaint
-: Bacteremia
Subjective / Review of Systems
Feels good today.
Vital Signs / Physical Exam
Vital Signs
Vital Signs
Temp Pulse Resp BP Pulse Ox
98.1 F 95 19 119/77 97
07/07/23 07:22 07/07/23 07:22 07/07/23 07:22 07/07/23 07:22 07/07/23 07:22
Physical Exam
Constitutional: No Acute Distress and Comfortable
Eyes: Sclera Anicteric
Cardiovascular: Regular Rate and S1/S2
Pulmonary: Clear
Gastrointestinal: Soft, Non Tender and Non Distended
Extremities: Negative Splinter Hemorrhage or [place]ay Lesions
Objective Data
Lab Data
Lab Results
07/07/23 04:40
07/07/23 04:40
PT 16.0 Sec (11.4-14.6) H 07/03/23 05:54
INR 1.30 07/03/23 05:54
APTT 30.6 Sec (23.4-35.0) 07/03/23 05:54
Estimated Creat Clear 69 ml/min 07/07/23 04:40
Lactic Acid 0.9 mmol/L (0.7-2.0) 07/03/23 05:54
Total Bilirubin 0.5 mg/dl (0.2-1.3) 07/05/23 03:52
AST 35 U/L (17-59) 07/05/23 03:52
ALT 28 U/L (0-50) 07/05/23 03:52
Alkaline Phosphatase 66 U/L (38-126) 07/05/23 03:52
Most recent labs reviewed.
Micro Results:
07/04/23 13:59 Blood Culture - Preliminary
Blood/Venous No Growth in 48 hours- Final report to follow
07/04/23 13:59 Blood Culture - Preliminary
Blood/Venous No Growth in 48 hours- Final report to follow
07/02/23 23:55 Blood Culture - Final
Blood/Venous Strep mitis/oralis
Gram Stain - Final
07/02/23 23:20 Blood Culture - Final
Blood/Venous Strep mitis/oralis
Gram Stain - Final
07/04/23 11:27 Respiratory Culture - Final
Sputum Gram Stain - Final
07/02/23 23:49 Urine Culture - Final
Urine
Imaging:
07/02/2023 CXR (2 view): Lungs are clear. No focal airspace process or pleural effusion. No pneumothorax seen. Please see full dictation for additional detail. Film personally viewed.
Care Review
Plan reviewed with: Physician (Dr. Peraza)
[2023-07-07] MEDS: STERILE WATER FOR INJECTION 20 ML IV (10:50)
[2023-07-07] MEDS: ROCEPHIN 2000 MG IV (10:51)
[2023-07-07 11:10] VITALS: BP 129/83
[2023-07-07 11:36] LABS: Glucose - Point of Care 147 mg/dl (70-99)
[2023-07-07 15:15] VITALS: BP 128/88
--- NOTE | 2023-07-07 15:32 | CON.CAR ---
Consultation
Consultation Request
Date/Time Consultation Requested: 07/05/2023 at 1300
Date/Time Consultation Performed: 07/05/2023 at 1530
Requesting Provider: Dr. Vaughn Peraza
Performing Provider: Osman Cordero MD
Reason for Consultation: Bacteremia with history of bioprosthetic aortic valve
Medical History
-
Chief Complaint: Bacteremia
History of Present Illness:
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 Around June 28 he developed fatigue and intermittent
chills followed by confusion and was admitted on July 01 with euglycemic DKA and change in mental status. Ultimately blood cultures revealed strep mitis x 2. Patient has been treated with antibiotics, DKA has resolved, he is now feeling better, and
transesophageal echo is requested to evaluate for bioprosthetic endocarditis.
Past Medical History
Past Medical History: Arrhythmias (Paroxysmal atrial fibrillation status post AVR CABG), CAD (Remote PCI, CABG times 12 Jun 2022), HTN, Hypercholesterolemia, NIDDM, Valvular Disease (25 Barnett Inspiris bioprosthetic aortic valve June 2022) and Other
(Obstructive sleep apnea, 'inflammatory' arthritis)
Past Surgical History: Cardiac (CABG/AVR 2022) and Orthopedic (Right shoulder)
Social History
Tobacco: Non-Smoker
Alcohol: None
Drug: None
Personal:
Living: With Family
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
Family History
Family History: Reviewed & Not Pertinent
Allergies / Home Medications
Allergy/AdvReac Type Severity Reaction Status Date / Time
clopidogrel [From Plavix] Allergy SWELLING Verified 07/03/23 00:21
AND RASH
�Medication �Instructions �Recorded �Confirmed �Type
lisinopril 40 mg tablet 40 mg PO BID 10/10/13 12/01/21 History
rosuvastatin 40 mg tablet (Crestor) 40 mg PO DAILY 10/10/13 12/01/21 History
aspirin 81 mg capsule 81 mg PO DAILY 12/01/21 12/01/21 History
empagliflozin 10 mg tablet 10 mg PO DAILY 12/01/21 12/01/21 History
(Jardiance)
ezetimibe 10 mg tablet (Zetia) 10 mg PO DAILY 12/01/21 12/01/21 History
metformin 1,000 mg tablet 1,000 mg PO BID 12/01/21 12/01/21 History
metoprolol succinate 50 mg 50 mg PO DAILY 12/01/21 12/01/21 History
tablet,extended release 24 hr
blood sugar diagnostic (PraXcellTouch ##100 07/05/23 Rx
Verio test strips)
lancets 30 gauge (PraXcellTouch Delica ##100 07/05/23 Rx
Plus Lancet)
pen needle, diabetic 32 gauge x ##200 07/05/23 Rx
' (BD Ultra-Fine Seema Pen
Needle)
Review of Systems
-
All other systems: Negative unless noted
Physical Exam
Vital Signs
Temp Pulse Resp BP Pulse Ox
36.8 C 76 16 129/83 98
07/07/23 11:10 07/07/23 11:10 07/07/23 11:10 07/07/23 11:10 07/07/23 11:10
Lab Results
07/07/23 04:40
07/07/23 04:40
Troponin I < 0.012 ng/ml 07/03/23 12:08
Physical Exam
General: Well Developed and No Apparent Distress
HEENT: Normocephalic
Respiratory: Clear
Cardiac: Regular Rhythm and Murmur (Very soft systolic murmur base to apex)
GI: Soft
Musculoskeletal: No Edema
Skin: Warm and Dry
Neuro: AO x 3
Psych: Calm
Impression / Plan
-
Impression:
Strep bacteremia, suspected periodontal source
Euglycemic DKA
History of type 2 diabetes
Acute kidney injury
CAD status post inferior AK 2010
PCI-circumflex and RCA stents 2004, type unknown, acute inferior AK 2010, Xience stent to RCA
CABG x 2, AVR 25 Barnett Inspiris bioprosthetic aortic valve June 2022
Possible COVID positive, follow-up test negative
Hypertension
Hyperlipidemia
Paroxysmal atrial fibrillation postop, now off anticoagulation
Obstructive sleep apnea
CABG/AVR 06/2022: #25 Barnett Inspiris Resilia supra annular AVR with SON to LAD and saphenous vein to diagonal
Echocardiogram June 2023: EF 55-60%, bioprosthetic aortic valve, peak/mean gradient 17/9 mmHg, trace aortic regurgitation, normal RV, normal atria, trace MR, normal pulmonary artery pressure
Plan:
He presents with DKA and strep bacteremia 1 year out from bioprosthetic aortic valve replacement. Concern for possible endovascular infection/prosthetic valve endocarditis. Clinically he looks well at this time.
Transesophageal echo on Saturday. Discussed with patient.
Data Reviewed
-
EKG: Tracing Personally Visualized and interpreted (Normal sinus rhythm with PACs, left atrial enlargement, LVH inferior AK, nonspecific ST and T wave changes)
Medical Tests (Nuc Med, Echo etc): Report Reviewed by me
Labs: Labs Reviewed by me (Hemoglobin 11.7 white count 9.6 platelets 209, BUN and creatinine 11 and 1, creatinine was 2., Troponin negative)
Old Records: Reviewed
[2023-07-07 18:04] LABS: Glucose - Point of Care 70 mg/dl (70-99)
[2023-07-07] MEDS: LOVENOX 40 MG SC (18:04)
[2023-07-07 19:00] VITALS: BP 126/77
[2023-07-07 21:25] LABS: Glucose - Point of Care 155 mg/dl (70-99)
[2023-07-07] MEDS: LANTUS 0.149999999999999994 UNITS SC (22:20)
[2023-07-07 23:00] VITALS: BP 121/73
[2023-07-08] VITALS (7 sets, daily range): BP systolic 121–134; BP diastolic 76–89
[2023-07-08 06:55] LABS: % Basophils 0.5 % (0-2); % Eosinophils 0.6 % (0-6); % Monocytes 6.9 % (1.7-9.3); Absolute Eosinophils 0.1 10^3/uL (0-0.7); Absolute Immature Granulocytes 0.2 10^3/uL (0-0.05); Absolute Lymphocytes 2.1 10^3/uL (1.2-3.4); Absolute Monocytes 0.6 10^3/uL (0.1-0.6); Absolute Neutrophils 5.4 10^3/uL (1.4-6.5); Hematocrit 38.9 % (39.0-52.0); Hemoglobin 12.8 g/dL (13.0-18.0); Mean Corp Hgb Conc. 32.9 g/dL (33.0-37.0); Mean Corpuscular Hgb 28.9 pg (27.0-31.0); Mean Corpuscular Volume 87.8 fL (80.0-94.0); Mean Platelet Volume 9.9 fL (7.4-10.4); Nucleated Red Blood Cells % 0 % (-); Platelet Count 252 10^3/uL (130-400); Red Blood Cell Count 4.43 10^6/uL (4.70-6.10); Red Cell Dist. Width 14.2 % (11.5-14.5); White Blood Cell Count 8.4 10^3/uL (4.8-10.8)
[2023-07-08 07:14] LABS: Blood Urea Nitrogen 12 mg/dl (9-20); Calcium 8.4 mg/dl (8.4-10.2); Carbon Dioxide 28 mmol/L (22-30); Chloride 102 mmol/L (98-107); Estimated Creatinine Clearance 77 ml/min; Glucose 119 mg/dl (70-99); Potassium 3.6 mmol/L (3.5-5.1); Sodium 139 mmol/L (135-145); eGFR > 60.00
[2023-07-08] MEDS: GLUCOPHAGE 1000 MG PO ×2 (08:09→18:43)
[2023-07-08] MEDS: GLUCOTROL 5 MG PO ×2 (08:09→18:42)
[2023-07-08] MEDS: CRESTOR 40 MG PO (08:09)
[2023-07-08] MEDS: ASPIR LOW (ENTERIC COATED) 81 MG PO (08:09)
[2023-07-08] MEDS: TOPROL XL 50 MG PO (08:09)
[2023-07-08 08:33] LABS: Glucose - Point of Care 246 mg/dl (70-99)
[2023-07-08] MEDS: NOVOLOG FLEXPEN-MODERATE RESISTANCE 3 UNITS SC (08:37)
--- NOTE | 2023-07-08 08:46 | W.PN.UPDATE ---
Update Note
Progress Note Update
We ordered the patient n.p.o. after midnight for KOFFI to evaluate his valves on Saturday
[2023-07-08] MEDS: STERILE WATER FOR INJECTION 20 ML IV (10:55)
[2023-07-08] MEDS: ROCEPHIN 2000 MG IV (10:55)
--- NOTE | 2023-07-08 11:35 | W.PN.HOSP.TC ---
Today's Communication/Plan
-
see A/P
Assessment / Plan
Assessment / Plan
A/P:
# Euglycemic DKA with anion gap 25 on admission, BG 300; related sepsis POA and possibly Jardiance which he takes for his heart condition
# h/o NIDDM
# Prerenal ANGELA, resolved
# Mild lactic acidosis present on admission, resolved
Off insulin drip, out of ICU,
currently on Lantus 15 units HS
Glipizide 5 mg BID added
Cont [employer]FORMING [employer] Metformin
# Sepsis POA with Strep Oralis Bacteremia, likely periodontal source of bacteremia.
Narrow Zosyn to ceftriaxone.
For KOFFI on 07/08
ID on board
# History of bio AVR
# COVID positive the day prior to admission at work
COVID test negative in ER.
Does not appear to require any further treatment.
# CAD s/p 2 PCI and CABG
# HTN
Continue aspirin and statin
Resumed PERFORMING [employer] Toprol
# Paroxysmal atrial fibrillation
# Obstructive sleep apnea
# Hypertension
# Hypercholesterolemia
statin
Full code
DVT ppx: HSQ
Anticipated Discharge: > 48 hours
Subjective/Interval History
-
Date of Service: July 08, 2023
Objective Data
-
Labs:
Laboratory Results
07/08/23
05:58
WBC 8.4
Hgb 12.8 L
Hct 38.9 L
Plt Count 252 D
Sodium 139
Potassium 3.6
Chloride 102
Carbon Dioxide 28
BUN 12
Creatinine 0.9
Glucose 119 H
Calcium 8.4
Vital Signs:
Vital Signs
Temp Pulse Resp BP Pulse Ox
37.0 C 78 16 133/83 94
07/08/23 11:00 07/08/23 11:00 07/08/23 11:00 07/08/23 11:00 07/08/23 11:00
I&O
07/07/23 07/08/23 07/09/23
06:59 06:59 06:59
Intake Total 2780 / 2780 1520 / 1520
Balance 2780 / 2780 1520 / 1520
Review of Systems
-
All other systems: Reviewed and negative
Physical Exam
-
General: Well Developed, Well Nourished, No Apparent Distress, Comfortable and Conversant; Negative Respiratory Distress
HEENT: Normocephalic, Atraumatic, Nose Appears Normal and Ears Appear Normal; Negative Oxygen
Respiratory: Clear to Auscultation and Non Labored Respirations; Negative Accessory Resp Muscle Use
Cardiac: Regular Rhythm and S1/S2
GI: Soft, Nontender, Nondistended and Normal Bowel Sounds
Skin: Warm and Dry
Neuro: Awake, Alert, Oriented, AO x 3 and Nonfocal/Grossly Intact
Psych: Calm and Intact Judgement/Insight
Data Reviewed
-
Labs: Labs Reviewed by me
--- NOTE | 2023-07-08 12:03 | W.PN.ID1 ---
Date of Service
Date of Service: July 08, 2023
Today's Communication
Appreciate cardiology - KOFFI tomorrow,
Assessment / Plan
Strep mitis/oralis bacteremia
Leukocytosis; resolved
Encephalopathy
- Suspect TME from DKA
- resolved
Hx AVR (bovine, HUP; 06/2022)
CAD; Hx AK x 2
HTN
Dyslipidemia
DM
Hx aortic stenosis
Recommendations:
Continue ceftriaxone 2gIV q24h (d5 abx)
Repeat blood cultures negative to date.
Suspect periodontal source of bacteremia; pt reports he will need gum flap in near future.
For KOFFI tomorrow to rule out IE which will impact antibiotic management.
����������������������������������������������������������
Chief Complaint
-: Bacteremia
Subjective / Review of Systems
Feels well today.
Vital Signs / Physical Exam
Vital Signs
Vital Signs
Temp Pulse Resp BP Pulse Ox
98.6 F 78 16 133/83 94
07/08/23 11:00 07/08/23 11:00 07/08/23 11:00 07/08/23 11:00 07/08/23 11:00
Physical Exam
Constitutional: No Acute Distress
Cardiovascular: Regular Rate and S1/S2
Pulmonary: Clear
Gastrointestinal: Soft, Non Tender and Non Distended
Neurological: AO x 3
Objective Data
Lab Data
Lab Results
07/08/23 05:58
07/08/23 05:58
PT 16.0 Sec (11.4-14.6) H 07/03/23 05:54
INR 1.30 07/03/23 05:54
APTT 30.6 Sec (23.4-35.0) 07/03/23 05:54
Estimated Creat Clear 77 ml/min 07/08/23 05:58
Lactic Acid 0.9 mmol/L (0.7-2.0) 07/03/23 05:54
Total Bilirubin 0.5 mg/dl (0.2-1.3) 07/05/23 03:52
AST 35 U/L (17-59) 07/05/23 03:52
ALT 28 U/L (0-50) 07/05/23 03:52
Alkaline Phosphatase 66 U/L (38-126) 07/05/23 03:52
Most recent labs reviewed.
Micro Results:
07/04/23 13:59 Blood Culture - Preliminary
Blood/Venous No Growth in 72 hours- Final report to follow
07/04/23 13:59 Blood Culture - Preliminary
Blood/Venous No Growth in 72 hours- Final report to follow
07/02/23 23:55 Blood Culture - Final
Blood/Venous Strep mitis/oralis
Gram Stain - Final
07/02/23 23:20 Blood Culture - Final
Blood/Venous Strep mitis/oralis
Gram Stain - Final
07/04/23 11:27 Respiratory Culture - Final
Sputum Gram Stain - Final
07/02/23 23:49 Urine Culture - Final
Urine
Imaging:
07/02/2023 CXR (2 view): Lungs are clear. No focal airspace process or pleural effusion. No pneumothorax seen. Please see full dictation for additional detail. Film personally viewed.
[2023-07-08 12:36] LABS: Glucose - Point of Care 77 mg/dl (70-99)
[2023-07-08] MEDS: NOVOLOG FLEXPEN-MODERATE RESISTANCE SC ×2 (12:55→17:52)
[2023-07-08 17:21] LABS: Glucose - Point of Care 112 mg/dl (70-99)
[2023-07-08] MEDS: LOVENOX 40 MG SC (18:43)
[2023-07-08 21:23] LABS: Glucose - Point of Care 159 mg/dl (70-99)
[2023-07-08] MEDS: LANTUS 0.0749999999999999972 UNITS SC (22:00)
[2023-07-09 03:00] VITALS: BP 148/87
[2023-07-09 05:55] LABS: Hematocrit 34.1 % (39.0-52.0); Hemoglobin 11.8 g/dL (13.0-18.0); Mean Corp Hgb Conc. 34.6 g/dL (33.0-37.0); Mean Corpuscular Hgb 29.4 pg (27.0-31.0); Mean Corpuscular Volume 84.8 fL (80.0-94.0); Mean Platelet Volume 9.8 fL (7.4-10.4); Platelet Count 230 10^3/uL (130-400); Red Blood Cell Count 4.02 10^6/uL (4.70-6.10); Red Cell Dist. Width 14.2 % (11.5-14.5); White Blood Cell Count 7.8 10^3/uL (4.8-10.8)
[2023-07-09 06:30] LABS: Blood Urea Nitrogen 11 mg/dl (9-20); Calcium 8.2 mg/dl (8.4-10.2); Carbon Dioxide 26 mmol/L (22-30); Chloride 104 mmol/L (98-107); Estimated Creatinine Clearance 86 ml/min; Glucose 115 mg/dl (70-99); Magnesium 2.4 mg/dl (1.6-2.3); Potassium 3.7 mmol/L (3.5-5.1); Sodium 138 mmol/L (135-145); eGFR > 60.00
[2023-07-09 07:00] VITALS: BP 139/85
[2023-07-09 08:23] LABS: Glucose - Point of Care 132 mg/dl (70-99)
[2023-07-09] MEDS: NOVOLOG FLEXPEN-MODERATE RESISTANCE SC ×2 (08:32→12:43)
[2023-07-09] MEDS: ASPIR LOW (ENTERIC COATED) 81 MG PO (08:34)
[2023-07-09] MEDS: TOPROL XL 50 MG PO (08:34)
[2023-07-09] MEDS: CRESTOR 40 MG PO (08:40)
--- NOTE | 2023-07-09 08:42 | PN.DE.MGMTRT ---
Insulin Management
- -
07/09/2023 Diabetes Management F/U:
63 year old male admitted 07/01 with fever, SUN, weakness, Euglycemic DKA with anion gap 25 on admission, BG 300. COVID testing in ER negative.
PMH: CAD s/p 2 PCI and CABG, Aortic valve, HTN, HCL, and T2DM. A1C 9.6%, Cr 1.8-->1.4-->0.7 today, eGFR >60
Was taking Jardiance 10 mg daily and metformin 1000 BID prior to admission. States he was taking Soliqua with Metformin at the time that his diabetes was out of control with 'super high A1C'. He states that he made some changes with his diet and
that his numbers improved and he was taken off Soliqua and started on Jardiance.
Pt has been NPO since [place] for KOFFI today. He is currently off the floor and not available for interview.
Lantus dose was reduced last night in prep for procedure today. Glucose stable, was 157@ HS, FBG 115 this AM.
Will make no changes to current regimen. Cont Lantus 15 units @ HS, Glipizide 5mg BID and Metformin 1000mg BID.
Diabetes plan of care was discussed in detail w/pt's Nurse. Pt was provided with a new glucose meter -OneTouch for home use.
Diabetes History
- -
Type of Diabetes: 2
Pre-Admission Diabetes Regimen
07/09/23
05:32
Creatinine 0.8
Lab Results
Hemoglobin A1c 9.6 % (4.0-5.6) H 07/03/23 05:54
Insulin Pump Settings
IP Diabetes Regimen
07/08/23 07/08/23 07/08/23
12:34 17:19 21:22
Glucose
POC Glucose 77 112 H 159 H
07/09/23 07/09/23
05:32 08:21
Glucose 115 H
POC Glucose 132 H
Meal type: Dinner
Meal type: Lunch
Meal type: Breakfast
Amount consumed: 100%
Amount consumed: 100%
Amount consumed: 100%
Patient Education
--- NOTE | 2023-07-09 10:37 | W.PN.HOSP.TC ---
Today's Communication/Plan
-
see A/P
Assessment / Plan
Assessment / Plan
A/P:
# Euglycemic DKA with anion gap 25 on admission, BG 300; related sepsis POA and possibly Jardiance which he takes for his heart condition
# h/o NIDDM
# Prerenal ANGELA, resolved
# Mild lactic acidosis present on admission, resolved
Off insulin drip, out of ICU,
currently on Lantus 15 units HS
Added Glipizide 5 mg BID
Cont [employer] Metformin
# Sepsis POA with Strep Oralis Bacteremia, likely periodontal source of bacteremia.
Narrow Zosyn to ceftriaxone.
For KOFFI 07/08, follow report
ID on board
# History of bioprosthetic AVR 04/2022 at [facility]
# COVID positive the day prior to admission at work
COVID test negative in ER.
Does not appear to require any further treatment.
# CAD s/p 2 PCI and CABG
# HTN
Continue aspirin and statin
Resumed [employer] Toprol
# Paroxysmal atrial fibrillation
# Obstructive sleep apnea
# Hypertension
# Hypercholesterolemia
statin
Full code
DVT ppx: HSQ
Anticipated Discharge: > 48 hours
Subjective/Interval History
-
Date of Service: July 09, 2023
Objective Data
-
Labs:
Laboratory Results
07/09/23
05:32
WBC 7.8
Hgb 11.8 L
Hct 34.1 L
Plt Count 230
Sodium 138
Potassium 3.7
Chloride 104
Carbon Dioxide 26
BUN 11
Creatinine 0.8
Glucose 115 H
Calcium 8.2 L
Vital Signs:
Vital Signs
Temp Pulse Resp BP Pulse Ox
36.9 C 78 16 139/85 96
07/09/23 07:00 07/09/23 08:34 07/09/23 07:00 07/09/23 08:34 07/09/23 07:00
I&O
07/08/23 07/09/23 07/10/23
06:59 06:59 06:59
Intake Total 1520 / 1520 2160 / 2160
Balance 1520 / 1520 2160 / 2160
Review of Systems
-
All other systems: Reviewed and negative
Physical Exam
-
General: Well Developed, Well Nourished, No Apparent Distress, Comfortable and Conversant; Negative Respiratory Distress
HEENT: Normocephalic, Atraumatic, Nose Appears Normal and Ears Appear Normal; Negative Oxygen
Respiratory: Clear to Auscultation and Non Labored Respirations; Negative Accessory Resp Muscle Use
Cardiac: Regular Rhythm and S1/S2
GI: Soft, Nontender, Nondistended and Normal Bowel Sounds
Skin: Warm and Dry
Neuro: Awake, Alert, Oriented, AO x 3 and Nonfocal/Grossly Intact
Psych: Calm and Intact Judgement/Insight
Data Reviewed
-
Labs: Labs Reviewed by me
--- NOTE | 2023-07-09 11:26 | PTCARENOTE ---
Diabetes Education- Sttempted to see Giovanni for follow- up, currently off the floor for a procedure.
[2023-07-09] MEDS: ROCEPHIN 2000 MG IV (12:31)
[2023-07-09] MEDS: STERILE WATER FOR INJECTION 20 ML IV (12:32)
[2023-07-09 12:33] LABS: Glucose - Point of Care 103 mg/dl (70-99)
[2023-07-09 12:53] VITALS: BP 162/89
--- NOTE | 2023-07-09 14:35 | W.PN.CARDCBS ---
Today's Communication / Plan
-
KOFFI with likely aortic root abscess
Discussed with CT surgery in the evaluate and will treat with antibiotics for 48 hours and do another imaging modality to reassess on 07/10
Impression / Plan
-
Impression:
KOFFI 07/09/2023 with suspected aortic root abscess
Strep bacteremia, suspected periodontal source
Euglycemic DKA
History of type 2 diabetes
Acute kidney injury
CAD status post inferior CA 2010
PCI-circumflex and RCA stents 2004, type unknown, acute inferior CA 2010, Xience stent to RCA
CABG x 2, AVR 25 Barnett Inspiris bioprosthetic aortic valve June 2022
Possible COVID positive, follow-up test negative
Hypertension
Hyperlipidemia
Paroxysmal atrial fibrillation postop, now off anticoagulation
Obstructive sleep apnea
CABG/AVR 06/2022: #25 Barnett Inspiris Resilia supra annular AVR with SON to LAD and saphenous vein to diagonal
Echocardiogram June 2023: EF 55-60%, bioprosthetic aortic valve, peak/mean gradient 17/9 mmHg, trace aortic regurgitation, normal RV, normal atria, trace MR, normal pulmonary artery pressure
Plan:
Reviewed KOFFI which reveals possible aortic root abscess
AVR looks okay otherwise
Discussed with patient's CT surgeon Dr. Potter at [facility]
I texted video of the KOFFI to him to review
Current plan is to treat with antibiotics and reassessment imaging on 07/[address] of chest as alternative modality to assess AVR and aortic root and may need to discuss further with radiology
Will regroup with Dr. Potter on 07/10 and consider transfer to [facility] if worsen versus continued outpatient antibiotics and close follow-up with Dr. Potter
Discussed with patient in detail and primary service
Progress Note - Chief Concierge
Subjective
Date of Service: July 09, 2023
No chest pain or shortness of breath
Objective
Labs:
07/09/23 05:32
07/09/23 05:32
Labs
Hgb 11.8 g/dL (13.0-18.0) L 07/09/23 05:32
Hct 34.1 % (39.0-52.0) L 07/09/23 05:32
Plt Count 230 10^3/uL (130-400) 07/09/23 05:32
PT 16.0 Sec (11.4-14.6) H 07/03/23 05:54
INR 1.30 07/03/23 05:54
APTT 30.6 Sec (23.4-35.0) 07/03/23 05:54
Sodium 138 mmol/L (135-145) 07/09/23 05:32
Potassium 3.7 mmol/L (3.5-5.1) 07/09/23 05:32
BUN 11 mg/dl (9-20) 07/09/23 05:32
Creatinine 0.8 mg/dL (0.7-1.3) 07/09/23 05:32
Glucose 115 mg/dl (70-99) H 07/09/23 05:32
Vital Signs and I&O:
Vital Signs
Temp Pulse Resp BP Pulse Ox
98.2 F 74 17 162/89 99
07/09/23 12:53 07/09/23 12:53 07/09/23 12:53 07/09/23 12:53 07/09/23 12:53
Vital Signs
Temp Pulse Resp BP Pulse Ox
98.2 F 74 17 162/89 99
07/09/23 12:53 07/09/23 12:53 07/09/23 12:53 07/09/23 12:53 07/09/23 12:53
Intake & Output
07/07/23 07/08/23 07/09/23 07/10/23
06:59 06:59 06:59 06:59
Intake Total 2780 / 2780 1520 / 1520 2160 / 2160
Balance 2780 / 2780 1520 / 1520 0 / 2160
Physical Exam
Physical Exam
General: Well developed, well nourished in NAD.
--- NOTE | 2023-07-09 14:56 | PTOTSP ---
PATIENT FUNCTIONING INDEPENDENTLY ON LEVEL SURFACES WELL ELEVATIONS REQUIRING NO FURTHER ACUTE CARE SKILLED P.T. AT THIS TIME. WILL DISCHARGE FROM P.T. SERVICES.
[2023-07-09 15:00] VITALS: BP 139/83
--- NOTE | 2023-07-09 15:38 | W.PN.ID1 ---
Date of Service
Date of Service: July 09, 2023
Today's Communication
Continue antibiotics per
Assessment / Plan
Strep mitis/oralis bacteremia
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
Leukocytosis; resolved
Encephalopathy
- Suspect TME from DKA
- resolved
Hx AVR (bovine, HUP; 06/2022)
CAD; Hx [place] x 2
HTN
Dyslipidemia
DM
Hx aortic stenosis
Recommendations:
KOFFI results noted.
Continue ceftriaxone 2gIV q24h (d5 abx)
Repeat blood cultures negative to date.
Suspect periodontal source of bacteremia; pt reports he will need gum flap in near future.
For repeat KOFFI in several days. Cardiology in discussion with patient's primary CT Surgeon regarding disposition (ie. possible transfer)
����������������������������������������������������������
Chief Complaint
-: Bacteremia
Subjective / Review of Systems
Review of Systems: No Fever and No Chills
Vital Signs / Physical Exam
Vital Signs
Vital Signs
Temp Pulse Resp BP Pulse Ox
98.2 F 74 17 162/89 99
07/09/23 12:53 07/09/23 12:53 07/09/23 12:53 07/09/23 12:53 07/09/23 12:53
Physical Exam
Constitutional: No Acute Distress, Comfortable and Non-toxic
Eyes: No Conjunctival Hemorrhage and Sclera Anicteric
Cardiovascular: S1/S2; Negative S3/S4 or Murmur
Pulmonary: Non Labored; Negative Wheezes, Rales or Rhonchi
Gastrointestinal: Non Tender and Non Distended
Neurological: Awake and Alert
Psychological: Calm
Objective Data
Lab Data
Lab Results
07/09/23 05:32
07/09/23 05:32
PT 16.0 Sec (11.4-14.6) H 07/03/23 05:54
INR 1.30 07/03/23 05:54
APTT 30.6 Sec (23.4-35.0) 07/03/23 05:54
Estimated Creat Clear 86 ml/min 07/09/23 05:32
Lactic Acid 0.9 mmol/L (0.7-2.0) 07/03/23 05:54
Total Bilirubin 0.5 mg/dl (0.2-1.3) 07/05/23 03:52
AST 35 U/L (17-59) 07/05/23 03:52
ALT 28 U/L (0-50) 07/05/23 03:52
Alkaline Phosphatase 66 U/L (38-126) 07/05/23 03:52
Most recent labs reviewed.
Micro Results:
07/04/23 13:59 Blood Culture - Final
Blood/Venous No Growth - Final Report
07/04/23 13:59 Blood Culture - Final
Blood/Venous No Growth - Final Report
07/02/23 23:55 Blood Culture - Final
Blood/Venous Strep mitis/oralis
Gram Stain - Final
07/02/23 23:20 Blood Culture - Final
Blood/Venous Strep mitis/oralis
Gram Stain - Final
07/04/23 11:27 Respiratory Culture - Final
Sputum Gram Stain - Final
07/02/23 23:49 Urine Culture - Final
Urine
Imaging:
07/09/2023 ECHO (KOFFI):-Left ventricular ejection fraction is 60-65%. There was evidence suggestive of bioprosthetic aortic valve root/annular abscess with pannus formation and partial dehiscence. The bioprosthetic aortic valve appears to open
normally with no significant aortic regurgitation noted. Mild to moderate mitral regurgitation. No mitral valve vegetation visualized.
07/02/2023 CXR (2 view): Lungs are clear. No focal airspace process or pleural effusion. No pneumothorax seen. Please see full dictation for additional detail. Film personally viewed.
[2023-07-09 16:56] LABS: Glucose - Point of Care 173 mg/dl (70-99)
[2023-07-09] MEDS: GLUCOTROL 5 MG PO (17:32)
[2023-07-09] MEDS: LOVENOX 40 MG SC (17:32)
[2023-07-09] MEDS: GLUCOPHAGE 1000 MG PO (17:36)
[2023-07-09] MEDS: NOVOLOG FLEXPEN-MODERATE RESISTANCE 1 UNITS SC (17:43)
[2023-07-09 19:20] VITALS: BP 132/85
[2023-07-09 21:36] LABS: Glucose - Point of Care 63 mg/dl (70-99)
[2023-07-09 22:01] LABS: Glucose - Point of Care 73 mg/dl (70-99)
--- NOTE | 2023-07-09 22:11 | W.PN.UPDATE ---
Update Note
Progress Note Update
Bs 63 at will hold Lantus for tonight and resume regular schedule tomorrow.
[2023-07-09] MEDS: LANTUS SC (22:27)
[2023-07-09 23:12] VITALS: BP 103/69
[2023-07-10 00:14] LABS: Glucose - Point of Care 128 mg/dl (70-99)
[2023-07-10 02:47] LABS: Glucose - Point of Care 103 mg/dl (70-99)
[2023-07-10 03:19] VITALS: BP 137/88
[2023-07-10 07:05] LABS: Hemoglobin 12.1 g/dL (13.0-18.0); Mean Corp Hgb Conc. 33.6 g/dL (33.0-37.0); Mean Corpuscular Hgb 28.7 pg (27.0-31.0); Mean Corpuscular Volume 85.3 fL (80.0-94.0); Mean Platelet Volume 9.7 fL (7.4-10.4); Platelet Count 259 10^3/uL (130-400); Red Blood Cell Count 4.22 10^6/uL (4.70-6.10); Red Cell Dist. Width 14.2 % (11.5-14.5); White Blood Cell Count 8.1 10^3/uL (4.8-10.8)
[2023-07-10 07:30] VITALS: BP 130/83
[2023-07-10 07:44] LABS: Blood Urea Nitrogen 12 mg/dl (9-20); Calcium 8.8 mg/dl (8.4-10.2); Carbon Dioxide 25 mmol/L (22-30); Chloride 102 mmol/L (98-107); Estimated Creatinine Clearance 86 ml/min; Glucose 147 mg/dl (70-99); Magnesium 2.4 mg/dl (1.6-2.3); Sodium 137 mmol/L (135-145); eGFR > 60.00
--- NOTE | 2023-07-10 07:48 | PN.DE.MGMTRT ---
Insulin Management
- -
07/10/2023: Diabetes Management F/U:
63 year old male admitted 07/01 with fever, SUN, weakness, Euglycemic DKA with anion gap 25 on admission, BG 300. COVID testing in ER negative.
PMH: CAD s/p 2 PCI and CABG, Aortic valve, HTN, HCL, and T2DM. A1C 9.6%, Cr 1.8-->1.4-->0.7 today, eGFR >60
Was taking Jardiance 10 mg daily and metformin 1000 BID prior to admission. States he was taking Soliqua with Metformin at the time that his diabetes was out of control with 'super high A1C'. He states that he made some changes with his diet and
that his numbers improved and he was taken off Soliqua and started on Jardiance.
Pt awake, A/O x3, sitting up in chair, pleasant and able to discuss diabetes mgt.
Pt was NPO majority of the day yesterday, states he did not eat much yesterday waiting for the procedure but received insulin during the day.
Lantus was held last night due to hypoglycemia-->63 @21:34. Otherwise, premeal range was 103 to 173, FBG 147 this AM.
Will STOP Lantus all together. Cont Glipizide 5mg BID and Metformin 1000mg BID.
Given A1C of 9.6%, pt will need adequate oral regimen for optimal glucose control in the setting of bacteremia with suspected Aortic root abscess.
Diabetes plan of care was discussed in detail w/pt and Nurse.
Diabetes History
- -
Type of Diabetes: 2 requiring insulin
Pre-Admission Diabetes Regimen
07/10/23
06:47
Creatinine 0.8
Lab Results
Hemoglobin A1c 9.6 % (4.0-5.6) H 07/03/23 05:54
Insulin Pump Settings
IP Diabetes Regimen
07/09/23 07/09/23 07/09/23
08:21 12:32 16:55
Glucose
POC Glucose 132 H 103 H 173 H
07/09/23 07/09/23 07/10/23
21:34 21:59 00:13
Glucose
POC Glucose 63 L 73 128 H
07/10/23 07/10/23
02:45 06:47
Glucose 147 H
POC Glucose 103 H
Meal type: Lunch
Amount consumed: 100%
Patient Education
[2023-07-10 07:49] LABS: Glucose - Point of Care 133 mg/dl (70-99)
[2023-07-10] MEDS: GLUCOPHAGE 1000 MG PO ×2 (09:02→17:20)
[2023-07-10] MEDS: ASPIR LOW (ENTERIC COATED) 81 MG PO (09:02)
[2023-07-10] MEDS: CRESTOR 40 MG PO (09:02)
[2023-07-10] MEDS: TOPROL XL 50 MG PO (09:02)
[2023-07-10] MEDS: ROCEPHIN 2000 MG IV (09:07)
[2023-07-10] MEDS: STERILE WATER FOR INJECTION 20 ML IV (09:07)
[2023-07-10] MEDS: GLUCOTROL 5 MG PO ×2 (09:07→17:20)
[2023-07-10] MEDS: NOVOLOG FLEXPEN-MODERATE RESISTANCE SC ×3 (09:19→17:23)
--- NOTE | 2023-07-10 10:03 | W.PN.HOSP.TC ---
Today's Communication/Plan
-
see A/P
Assessment / Plan
Assessment / Plan
A/P:
# Euglycemic DKA with anion gap 25 on admission, BG 300; related to sepsis POA and possibly Jardiance which he takes for his heart condition
# h/o NIDDM
# Prerenal ANGELA, resolved
# Mild lactic acidosis present on admission, resolved
Off insulin drip, out of ICU,
A1C 9.6%
Was on Lantus 15 units HS, now Lantus on hold
Cont Glipizide 5mg BID and Metformin 1000mg BID
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
# Sepsis POA with Strep Oralis Bacteremia, likely periodontal source of bacteremia.
# Now with likely with bioprosthetic aortic valve root/annular abscess with pannus formation
Narrow Zosyn to ceftriaxone.
s/p KOFFI 07/08, noted possible bioprosthetic aortic valve root/annular abscess with pannus formation
ID on board
Card on board, discussed with CT surgery Dr. Potter at [facility], who recc imaging on 07/10 (consider CT chest as alternative modality to assess AVR and aortic root) and to consider transfer to [facility] if worsen versus
continued outpatient antibiotics and close follow-up with Dr. Potter
# History of bioprosthetic AVR 04/2022 at [facility] with Dr Potter who is now at [facility]
# COVID positive the day prior to admission at work
COVID test negative in ER.
Does not appear to require any further treatment.
# CAD s/p 2 PCI and CABG
# HTN
Continue aspirin and statin
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
# Paroxysmal atrial fibrillation
# Obstructive sleep apnea
# Hypertension
# Hypercholesterolemia
statin
Full code
DVT ppx: HSQ
Anticipated Discharge: > 48 hours
Subjective/Interval History
-
Date of Service: July 10, 2023
Objective Data
-
Labs:
Laboratory Results
07/10/23
06:47
WBC 8.1
Hgb 12.1 L
Hct 36.0 L
Plt Count 259
Sodium 137
Potassium 4.0
Chloride 102
Carbon Dioxide 25
BUN 12
Creatinine 0.8
Glucose 147 H
Calcium 8.8
Vital Signs:
Vital Signs
Temp Pulse Resp BP Pulse Ox
37.2 C 80 16 130/83 97
07/10/23 07:30 07/10/23 07:30 07/10/23 07:30 07/10/23 07:30 07/10/23 07:30
I&O
07/09/23 07/10/23 07/11/23
06:59 06:59 06:59
Intake Total 2160 / 2160 1060 / 1060
Balance 2160 / 2160 1060 / 1060
Review of Systems
-
All other systems: Reviewed and negative
Physical Exam
-
General: Well Developed, Well Nourished, No Apparent Distress, Comfortable and Conversant; Negative Respiratory Distress
HEENT: Normocephalic, Atraumatic, Nose Appears Normal and Ears Appear Normal; Negative Oxygen
Respiratory: Clear to Auscultation and Non Labored Respirations; Negative Accessory Resp Muscle Use
Cardiac: Regular Rhythm and S1/S2
GI: Soft, Nontender, Nondistended and Normal Bowel Sounds
Skin: Warm and Dry
Neuro: Awake, Alert, Oriented, AO x 3 and Nonfocal/Grossly Intact
Psych: Calm and Intact Judgement/Insight
Data Reviewed
-
Medical Tests (Nuc Med, Echo etc): Report Reviewed by me (KOFFI)
Labs: Labs Reviewed by me
--- NOTE | 2023-07-10 11:29 | CM ---
Cardiology involved.
Had KOFFI 07/09/23 yesterday.
Possible transfer to [facility] for CT surgery.
Will continue to assess and assisting in dc planning.
PLAN Possible transfer to [place] for surgery
--- NOTE | 2023-07-10 11:55 | W.PN.ID1 ---
Date of Service
Date of Service: July 10, 2023
Today's Communication
Continue antibiotics
Assessment / Plan
Strep mitis/oralis bacteremia
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
Leukocytosis; resolved
Encephalopathy
- Suspect TME from DKA
- resolved
Hx AVR (bovine, HUP; 06/2022)
CAD; Hx [place] x 2
HTN
Dyslipidemia
DM
Hx aortic stenosis
Recommendations:
KOFFI results noted.
Continue ceftriaxone 2gIV q24h (d#6 abx)
Repeat blood cultures negative to date.
Suspect periodontal source of bacteremia; pt reports he will need gum flap in near future.
For repeat imaging in the next day or so. Cardiology in discussion with patient's primary CT Surgeon regarding disposition (ie. possible transfer)
����������������������������������������������������������
Chief Complaint
-: Bacteremia
Subjective / Review of Systems
Review of Systems: No Fever and No Chills
Vital Signs / Physical Exam
Vital Signs
Vital Signs
Temp Pulse Resp BP Pulse Ox
98.9 F 80 16 130/83 97
07/10/23 07:30 07/10/23 07:30 07/10/23 07:30 07/10/23 07:30 07/10/23 07:30
Physical Exam
Constitutional: No Acute Distress, Comfortable and Non-toxic
Eyes: No Conjunctival Hemorrhage
Cardiovascular: S1/S2; Negative S3/S4 or Murmur
Pulmonary: Clear and Non Labored
Gastrointestinal: Soft, Non Tender and Non Distended
Neurological: Awake, Alert and Oriented
Psychological: Calm
Objective Data
Lab Data
Lab Results
07/10/23 06:47
07/10/23 06:47
PT 16.0 Sec (11.4-14.6) H 07/03/23 05:54
INR 1.30 07/03/23 05:54
APTT 30.6 Sec (23.4-35.0) 07/03/23 05:54
Estimated Creat Clear 86 ml/min 07/10/23 06:47
Lactic Acid 0.9 mmol/L (0.7-2.0) 07/03/23 05:54
Total Bilirubin 0.5 mg/dl (0.2-1.3) 07/05/23 03:52
AST 35 U/L (17-59) 07/05/23 03:52
ALT 28 U/L (0-50) 07/05/23 03:52
Alkaline Phosphatase 66 U/L (38-126) 07/05/23 03:52
Most recent labs reviewed.
Micro Results:
07/04/23 13:59 Blood Culture - Final
Blood/Venous No Growth - Final Report
07/04/23 13:59 Blood Culture - Final
Blood/Venous No Growth - Final Report
07/02/23 23:55 Blood Culture - Final
Blood/Venous Strep mitis/oralis
Gram Stain - Final
07/02/23 23:20 Blood Culture - Final
Blood/Venous Strep mitis/oralis
Gram Stain - Final
07/04/23 11:27 Respiratory Culture - Final
Sputum Gram Stain - Final
07/02/23 23:49 Urine Culture - Final
Urine
Blood Culture Final MARLON: 07/02/23-2319
Strep mitis/oralis
Organism 1 Strep mitis/oralis
1. Strep mitis/oralis
M.I.C. RX
--------- ---
Ampicillin <=0.06 S
Azithromycin >2 R
Ceftriaxone <=0.25 S
Clindamycin 2 I
Levofloxacin 0.5 S
Penicillin G <=0.03 S
Tetracycline <=0.5 S
Vancomycin 0.25 S
Imaging:
07/09/2023 ECHO (KOFFI):-Left ventricular ejection fraction is 60-65%. There was evidence suggestive of bioprosthetic aortic valve root/annular abscess with pannus formation and partial dehiscence. The bioprosthetic aortic valve appears to open
normally with no significant aortic regurgitation noted. Mild to moderate mitral regurgitation. No mitral valve vegetation visualized.
07/02/2023 CXR (2 view): Lungs are clear. No focal airspace process or pleural effusion. No pneumothorax seen. Please see full dictation for additional detail. Film personally viewed.
--- NOTE | 2023-07-10 12:09 | W.PN.CARDCBS ---
Addendum entered and electronically signed by Michael Chambers MD 07/10/23 17:15:
I saw and examined the patient.
The Manager Women's note was reviewed and I agree with the note.
Comment:
GEN: No distress, awake, Ox3
HEENT: supple, anicteric, mmm
LUNGS: CTA, no wheezes/rales
CV: Reg, S1/S2, 1/6 syst LSB, no gallop
ABD: soft, BS+, NT/ND
EXT: No edema
NEURO: Gross non-focal
SKIN: No rash
Plan:
For CT Scan today. KOFFI with concern for aortic root abscess in the setting of strep bacteremia. Will continue IV antibiotics. He currently is afebrile with normal white blood cell count.
After CT scan we will decide on timeframe of reimaging with KOFFI to reassess valve.
Original Note:
Today's Communication / Plan
-
continue abx per ID
for chest CT in AM to further eval possible aortic root abscess noted on KOFFI
Impression / Plan
-
Impression:
KOFFI 07/09/2023 with suspected aortic root abscess
Strep bacteremia, suspected periodontal source
Euglycemic DKA
History of type 2 diabetes
Acute kidney injury
CAD status post inferior [place] 2010
PCI-circumflex and RCA stents 2004, type unknown, acute inferior [place] 2010, Xience stent to RCA
CABG x 2, AVR 25 Barnett Inspiris bioprosthetic aortic valve June 2022
Possible COVID positive, follow-up test negative
Hypertension
Hyperlipidemia
Paroxysmal atrial fibrillation postop, now off anticoagulation
Obstructive sleep apnea
CABG/AVR 06/2022: #25 Barnett Inspiris Resilia supra annular AVR with SON to LAD and saphenous vein to diagonal
Echocardiogram June 2023: EF 55-60%, bioprosthetic aortic valve, peak/mean gradient 17/9 mmHg, trace aortic regurgitation, normal RV, normal atria, trace MR, normal pulmonary artery pressure
KOFFI 07/09/23: EF 60 to 65%, evidence suggestive of bioprosthetic aortic valve root/annular abscess with pannus formation and partial dehiscence, no significant AR, mild to moderate MR, no MV veg noted
Plan:
-KOFFI 07/08 with possible aortic root abscess. d/w CT surgery as well as radiology today. will plan for CTA of chest to eval further for aortic root abscess 48 hours post initiation of abx so 07/11/23.
-Will regroup with Dr. Potter (OP surgeon) on 07/10 and consider transfer to [facility] pending results
-looks well
-blood cultures have cleared
-d/w ID
-in SR upon review of tele
-continue asa, toprol, crestor
Progress Note - Automatic Clipper And Stripper
Subjective
Date of Service: July 10, 2023
looks well. without complaints
Objective
Labs:
07/10/23 06:47
07/10/23 06:47
Labs
Hgb 12.1 g/dL (13.0-18.0) L 07/10/23 06:47
Hct 36.0 % (39.0-52.0) L 07/10/23 06:47
Plt Count 259 10^3/uL (130-400) 07/10/23 06:47
PT 16.0 Sec (11.4-14.6) H 07/03/23 05:54
INR 1.30 07/03/23 05:54
APTT 30.6 Sec (23.4-35.0) 07/03/23 05:54
Sodium 137 mmol/L (135-145) 07/10/23 06:47
Potassium 4.0 mmol/L (3.5-5.1) 07/10/23 06:47
BUN 12 mg/dl (9-20) 07/10/23 06:47
Creatinine 0.8 mg/dL (0.7-1.3) 07/10/23 06:47
Glucose 147 mg/dl (70-99) H 07/10/23 06:47
Vital Signs and I&O:
Vital Signs
Temp Pulse Resp BP Pulse Ox
98.9 F 80 16 130/83 95
07/10/23 07:30 07/10/23 07:30 07/10/23 07:30 07/10/23 07:30 07/10/23 09:00
Vital Signs
Temp Pulse Resp BP Pulse Ox
98.9 F 80 16 130/83 95
07/10/23 07:30 07/10/23 07:30 07/10/23 07:30 07/10/23 07:30 07/10/23 09:00
Intake & Output
07/08/23 07/09/23 07/10/23 07/11/23
07:59 07:59 07:59 07:59
Intake Total 1520 / 1520 2160 / 2160 1060 / 1060
Balance 1520 / 1520 2160 / 2160 1060 / 1060
Physical Exam
Physical Exam
GEN: No distress, awake, alert, oriented x3. sitting in chair
HEENT: supple, anicteric, mmm, eomi
LUNGS: CTA B/L, no wheezes
CV: Reg, S1/S2, no murmur
ABD: soft, BS+, NT/ND
EXT: No cyanosis, clubbing, edema
NEURO: Gross non-focal
SKIN: Warm, pink, dry. No rash
[2023-07-10 12:11] LABS: Glucose - Point of Care 99 mg/dl (70-99)
[2023-07-10 15:15] VITALS: BP 98/61
[2023-07-10 17:20] LABS: Glucose - Point of Care 113 mg/dl (70-99)
[2023-07-10] MEDS: LOVENOX 40 MG SC (17:20)
[2023-07-10 19:40] VITALS: BP 141/81
[2023-07-10 21:35] LABS: Glucose - Point of Care 107 mg/dl (70-99)
[2023-07-10 23:25] VITALS: BP 135/86
[2023-07-11] VITALS (7 sets, daily range): BP systolic 116–149; BP diastolic 77–89; PULSE 64; O2SAT 96
[2023-07-11 06:06] LABS: Hematocrit 35.4 % (39.0-52.0); Hemoglobin 11.7 g/dL (13.0-18.0); Mean Corp Hgb Conc. 33.1 g/dL (33.0-37.0); Mean Corpuscular Hgb 29.2 pg (27.0-31.0); Mean Corpuscular Volume 88.3 fL (80.0-94.0); Mean Platelet Volume 9.8 fL (7.4-10.4); Platelet Count 242 10^3/uL (130-400); Red Blood Cell Count 4.01 10^6/uL (4.70-6.10); Red Cell Dist. Width 13.9 % (11.5-14.5); White Blood Cell Count 9.3 10^3/uL (4.8-10.8)
[2023-07-11 06:36] LABS: Blood Urea Nitrogen 11 mg/dl (9-20); Calcium 8.8 mg/dl (8.4-10.2); Carbon Dioxide 25 mmol/L (22-30); Chloride 101 mmol/L (98-107); Estimated Creatinine Clearance 98 ml/min; Glucose 145 mg/dl (70-99); Magnesium 2.3 mg/dl (1.6-2.3); Sodium 138 mmol/L (135-145); eGFR > 60.00
[2023-07-11 08:03] LABS: Glucose - Point of Care 139 mg/dl (70-99)
--- NOTE | 2023-07-11 08:35 | PN.DE.MGMTRT ---
Insulin Management
- -
07/11/2023: Diabetes Management F/U:
63 year old male admitted 07/01 with fever, SUN, weakness, Euglycemic DKA with anion gap 25 on admission, BG 300. COVID testing in ER negative.
PMH: CAD s/p 2 PCI and CABG, Aortic valve, HTN, HCL, and T2DM. A1C 9.6%, Cr 1.8-->1.4-->0.7 today, eGFR >60
Was taking Jardiance 10 mg daily and metformin 1000 BID prior to admission. States he was taking Soliqua with Metformin at the time that his diabetes was out of control with 'super high A1C'. He states that he made some changes with his diet and
that his numbers improved and he was taken off Soliqua and started on Jardiance.
Pt awake, A/O x3, sitting up in chair, pleasant and able to discuss diabetes mgt.
Lantus was discontinued 07/09. Glucose stable and in range w/o hypoglycemia. Premeal range 99 to 133 and FBG 145 this AM.
Will make no changes to current regimen. Cont Glipizide 5mg BID and Metformin 1000mg BID.
Given A1C of 9.6%, pt will need adequate oral regimen for optimal glucose control in the setting of bacteremia with suspected Aortic root abscess.
Diabetes plan of care was discussed in detail w/pt and Nurse.
Diabetes History
- -
Type of Diabetes: 2
Pre-Admission Diabetes Regimen
07/11/23
05:15
Creatinine 0.7
Lab Results
Hemoglobin A1c 9.6 % (4.0-5.6) H 07/03/23 05:54
Insulin Pump Settings
IP Diabetes Regimen
07/10/23 07/10/23 07/10/23
12:10 17:18 21:33
Glucose
POC Glucose 99 113 H 107 H
07/11/23 07/11/23
05:15 08:02
Glucose 145 H
POC Glucose 139 H
Meal type: Dinner
Meal type: Lunch
Meal type: Breakfast
Amount consumed: 100%
Amount consumed: 100%
Amount consumed: 100%
Patient Education
[2023-07-11] MEDS: NOVOLOG FLEXPEN-MODERATE RESISTANCE SC ×3 (08:45→17:11)
[2023-07-11] MEDS: GLUCOPHAGE 1000 MG PO ×2 (09:03→17:12)
[2023-07-11] MEDS: ASPIR LOW (ENTERIC COATED) 81 MG PO (09:03)
[2023-07-11] MEDS: TOPROL XL 50 MG PO (09:03)
[2023-07-11] MEDS: GLUCOTROL 5 MG PO ×2 (09:03→17:12)
[2023-07-11] MEDS: CRESTOR 40 MG PO (09:03)
[2023-07-11] MEDS: ROCEPHIN 2000 MG IV (09:07)
[2023-07-11] MEDS: STERILE WATER FOR INJECTION 20 ML IV (09:07)
--- NOTE | 2023-07-11 10:03 | CM ---
Patient seen at bedside. Patient stated that he is anticipating further testing today. Patient stated that he was feeling better since his admission but he was realizing how complicated the situation was at this time. Patient plan is to go home
with VN vs home with no needs. CM will continue to follow for discharge planning needs.
Plan; TBD pending medical treatment plan.
--- NOTE | 2023-07-11 11:41 | W.PN.HOSP.TC ---
Today's Communication/Plan
-
see A/P
Assessment / Plan
Assessment / Plan
A/P:
# Euglycemic DKA with anion gap 25 on admission, BG 300; related to sepsis POA and possibly Jardiance which he takes for his heart condition
# h/o NIDDM
# Prerenal ANGELA, resolved
# Mild lactic acidosis present on admission, resolved
Off insulin drip, out of ICU
A1C 9.6%
Added Lantus now adjusted to 5 units HS
Cont Glipizide 5mg BID and Metformin 1000mg BID
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
# Sepsis POA with Strep Oralis Bacteremia, likely periodontal source of bacteremia.
# Now with likely with bioprosthetic aortic valve root/annular abscess with pannus formation
Narrow Zosyn to ceftriaxone.
s/p KOFFI 07/08, noted possible bioprosthetic aortic valve root/annular abscess with pannus formation
ID on board
Card on board, discussed with CT surgery Dr. Potter at [facility], who recc imaging on 07/[address] TAVR today 07/10
consider transfer to [facility] if worsen versus continued outpatient antibiotics and close follow-up with Dr. Potter
# History of bioprosthetic AVR 04/2022 at [facility] with Dr Potter who is now at [facility]
# COVID positive the day prior to admission at work
COVID test negative in ER.
Does not appear to require any further treatment.
# CAD s/p 2 PCI and CABG
# HTN
Continue aspirin and statin
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
# Paroxysmal atrial fibrillation
# Obstructive sleep apnea
# Hypertension
# Hypercholesterolemia
statin
Full code
DVT ppx: HSQ
Anticipated Discharge: 24 - 48 hours
Subjective/Interval History
-
Date of Service: July 11, 2023
Objective Data
-
Labs:
Laboratory Results
07/11/23
05:15
WBC 9.3
Hgb 11.7 L
Hct 35.4 L
Plt Count 242
Sodium 138
Potassium 4.0
Chloride 101
Carbon Dioxide 25
BUN 11
Creatinine 0.7
Glucose 145 H
Calcium 8.8
Vital Signs:
Vital Signs
Temp Pulse Resp BP Pulse Ox
36.9 C 78 16 137/86 97
07/11/23 11:00 07/11/23 11:00 07/11/23 11:00 07/11/23 11:00 07/11/23 11:00
I&O
07/10/23 07/11/23 07/12/23
06:59 06:59 06:59
Intake Total 0 / 1060 2059
Balance 1060 / 1060 2059
Review of Systems
-
All other systems: Reviewed and negative
Physical Exam
-
General: Well Developed, Well Nourished, No Apparent Distress, Comfortable and Conversant; Negative Respiratory Distress
HEENT: Normocephalic, Atraumatic, Nose Appears Normal and Ears Appear Normal; Negative Oxygen
Respiratory: Clear to Auscultation and Non Labored Respirations; Negative Accessory Resp Muscle Use
Cardiac: Regular Rhythm and S1/S2
GI: Soft, Nontender, Nondistended and Normal Bowel Sounds
Skin: Warm and Dry
Neuro: Awake, Alert, Oriented, AO x 3 and Nonfocal/Grossly Intact
Psych: Calm and Intact Judgement/Insight
Data Reviewed
-
Medical Tests (Nuc Med, Echo etc): Report Reviewed by me (KOFFI)
Labs: Labs Reviewed by me
--- NOTE | 2023-07-11 12:06 | W.PN.CARDCBS ---
Addendum entered and electronically signed by Michael Chambers MD 07/11/23 13:18:
I saw and examined the patient.
The [employer] Developer's note was reviewed and I agree with the note.
Comment:
GEN: No distress, awake, Ox3
HEENT: supple, anicteric, mmm
LUNGS: CTA, no wheezes/rales
CV: Reg, S1/S2, 1/6 syst LSB, no gallop
ABD: soft, BS+, NT/ND
EXT: No edema
NEURO: Gross non-focal
SKIN: No rash
Plan:
KOFFI suggestive of possible aortic root abscess. Continue antibiotics for strep bacteremia.
Plan is for CTA today to evaluate aortic valve and look for abscess.
Pending results will consider transfer to [facility] to be further evaluated by Dr. Potter
Original Note:
Today's Communication / Plan
-
Awaiting chest CTA results
Impression / Plan
-
Impression:
KOFFI 07/09/2023 with suspected aortic root abscess
Strep bacteremia, suspected periodontal source
Euglycemic DKA
History of type 2 diabetes
Acute kidney injury
CAD status post inferior [place] 2010
PCI-circumflex and RCA stents 2004, type unknown, acute inferior [place] 2010, Xience stent to RCA
CABG x 2, AVR 25 Barnett Inspiris bioprosthetic aortic valve June 2022
Possible COVID positive, follow-up test negative
Hypertension
Hyperlipidemia
Paroxysmal atrial fibrillation postop, now off anticoagulation
Obstructive sleep apnea
CABG/AVR 06/2022: #25 Barnett Inspiris Resilia supra annular AVR with SON to LAD and saphenous vein to diagonal
Echocardiogram June 2023: EF 55-60%, bioprosthetic aortic valve, peak/mean gradient 17/9 mmHg, trace aortic regurgitation, normal RV, normal atria, trace MR, normal pulmonary artery pressure
KOFFI 07/09/23: EF 60 to 65%, evidence suggestive of bioprosthetic aortic valve root/annular abscess with pannus formation and partial dehiscence, no significant AR, mild to moderate MR, no MV veg noted
Plan:
-KOFFI 07/08 with possible aortic root abscess. for CTA of chest today to eval further for aortic root abscess 48 hours post initiation of abx
-Will discuss with Dr. Potter (OP surgeon) pending results of CTA and consider transfer to [facility]
-looks well
-blood cultures have cleared
-in SR upon review of tele
-continue asa, toprol, crestor
Progress Note - Aed Trainer
Subjective
Date of Service: July 11, 2023
No issues overnight. States he is tired but feels well otherwise
Objective
Labs:
07/11/23 05:15
07/11/23 05:15
Labs
Hgb 11.7 g/dL (13.0-18.0) L 07/11/23 05:15
Hct 35.4 % (39.0-52.0) L 07/11/23 05:15
Plt Count 242 10^3/uL (130-400) 07/11/23 05:15
PT 16.0 Sec (11.4-14.6) H 07/03/23 05:54
INR 1.30 07/03/23 05:54
APTT 30.6 Sec (23.4-35.0) 07/03/23 05:54
Sodium 138 mmol/L (135-145) 07/11/23 05:15
Potassium 4.0 mmol/L (3.5-5.1) 07/11/23 05:15
BUN 11 mg/dl (9-20) 07/11/23 05:15
Creatinine 0.7 mg/dL (0.7-1.3) 07/11/23 05:15
Glucose 145 mg/dl (70-99) H 07/11/23 05:15
Vital Signs and I&O:
Vital Signs
Temp Pulse Resp BP Pulse Ox
98.5 F 78 16 137/86 97
07/11/23 11:00 07/11/23 11:00 07/11/23 11:00 07/11/23 11:00 07/11/23 11:00
Vital Signs
Temp Pulse Resp BP Pulse Ox
98.5 F 78 16 137/86 97
07/11/23 11:00 07/11/23 11:00 07/11/23 11:00 07/11/23 11:00 07/11/23 11:00
Intake & Output
07/09/23 07/10/23 07/11/23 07/12/23
07:59 07:59 07:59 07:59
Intake Total 2160 / 2160 1060 / 1060 2059
Balance 2160 / 2160 1060 / 1060 2059
Physical Exam
Physical Exam
GEN: No distress, awake, alert, oriented x3.
HEENT: supple, anicteric, mmm, eomi
LUNGS: CTA B/L, no wheezes
CV: Reg, S1/S2, no murmur
ABD: soft, BS+, NT/ND
EXT: No cyanosis, clubbing, edema
NEURO: Gross non-focal
SKIN: Warm, pink, dry. No rash
[2023-07-11 12:34] LABS: Glucose - Point of Care 66 mg/dl (70-99)
[2023-07-11] MEDS: DEXTROSE 50% SYRINGE 12.5 GRAMS IV (12:38)
--- NOTE | 2023-07-11 12:40 | W.PN.ID1 ---
Date of Service
Date of Service: July 11, 2023
Today's Communication
Continue antibiotics
Assessment / Plan
Strep mitis/oralis bacteremia
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
Leukocytosis; resolved
Encephalopathy
- Suspect TME from DKA
- resolved
Hx AVR (bovine, HUP; 06/2022)
CAD; Hx PA x 2
HTN
Dyslipidemia
DM
Hx aortic stenosis
Recommendations:
KOFFI results noted.
Continue ceftriaxone 2gIV q24h (d#7 abx)
Repeat blood cultures negative to date.
Suspect periodontal source of bacteremia; pt reports he will need gum flap in near future.
For repeat imaging today. Cardiology in discussion with patient's primary CT Surgeon regarding disposition (ie. possible transfer)
����������������������������������������������������������
Chief Complaint
-: Bacteremia
Subjective / Review of Systems
Review of Systems: No Fever and No Chills
Vital Signs / Physical Exam
Vital Signs
Vital Signs
Temp Pulse Resp BP Pulse Ox
98.5 F 78 16 137/86 97
07/11/23 11:00 07/11/23 11:00 07/11/23 11:00 07/11/23 11:00 07/11/23 11:00
Physical Exam
Constitutional: No Acute Distress, Comfortable and Non-toxic
Eyes: No Conjunctival Hemorrhage and Sclera Anicteric
Cardiovascular: S1/S2; Negative S3/S4
Pulmonary: Non Labored
Gastrointestinal: Soft and Non Tender
Neurological: Awake and Alert
Psychological: Calm
Objective Data
Lab Data
Lab Results
07/11/23 05:15
07/11/23 05:15
PT 16.0 Sec (11.4-14.6) H 07/03/23 05:54
INR 1.30 05/22/24 05:54
APTT 30.6 Sec (23.4-35.0) 07/03/23 05:54
Estimated Creat Clear 98 ml/min 07/11/23 05:15
Lactic Acid 0.9 mmol/L (0.7-2.0) 07/03/23 05:54
Total Bilirubin 0.5 mg/dl (0.2-1.3) 07/05/23 03:52
AST 35 U/L (17-59) 07/05/23 03:52
ALT 28 U/L (0-50) 07/05/23 03:52
Alkaline Phosphatase 66 U/L (38-126) 07/05/23 03:52
Most recent labs reviewed.
Micro Results:
07/04/23 13:59 Blood Culture - Final
Blood/Venous No Growth - Final Report
07/04/23 13:59 Blood Culture - Final
Blood/Venous No Growth - Final Report
07/02/23 23:55 Blood Culture - Final
Blood/Venous Strep mitis/oralis
Gram Stain - Final
07/02/23 23:20 Blood Culture - Final
Blood/Venous Strep mitis/oralis
Gram Stain - Final
07/04/23 11:27 Respiratory Culture - Final
Sputum Gram Stain - Final
07/02/23 23:49 Urine Culture - Final
Urine
Blood Culture Final MARLON: 07/02/23
Strep mitis/oralis
Organism 1 Strep mitis/oralis
1. Strep mitis/oralis
M.I.C. RX
--------- ---
Ampicillin <=0.06 S
Azithromycin >2 R
Ceftriaxone <=0.25 S
Clindamycin 2 I
Levofloxacin 0.5 S
Penicillin G <=0.03 S
Tetracycline <=0.5 S
Vancomycin 0.25 S
Imaging:
07/09/2023 ECHO (KOFFI):-Left ventricular ejection fraction is 60-65%. There was evidence suggestive of bioprosthetic aortic valve root/annular abscess with pannus formation and partial dehiscence. The bioprosthetic aortic valve appears to open
normally with no significant aortic regurgitation noted. Mild to moderate mitral regurgitation. No mitral valve vegetation visualized.
07/02/2023 CXR (2 view): Lungs are clear. No focal airspace process or pleural effusion. No pneumothorax seen. Please see full dictation for additional detail. Film personally viewed.
[2023-07-11 13:05] LABS: Glucose - Point of Care 117 mg/dl (70-99)
[2023-07-11] MEDS: TYLENOL 650 MG PO (15:40)
[2023-07-11 16:27] LABS: Glucose - Point of Care 121 mg/dl (70-99)
[2023-07-11] MEDS: LOVENOX 40 MG SC (17:12)
[2023-07-11 21:36] LABS: Glucose - Point of Care 108 mg/dl (70-99)
--- NOTE | 2023-07-12 06:50 | PN.DE.MGMTRT ---
Insulin Management
- -
07/12/2023: Diabetes Management F/U:
63 year old male admitted 07/01 with fever, SUN, weakness, Euglycemic DKA with anion gap 25 on admission, BG 300. COVID testing in ER negative.
PMH: CAD s/p 2 PCI and CABG, Aortic valve, HTN, HCL, and T2DM. A1C 9.6%, Cr 1.8-->1.4-->0.7 today, eGFR >60
Was taking Jardiance 10 mg daily and metformin 1000 BID prior to admission. States he was taking Soliqua with Metformin at the time that his diabetes was out of control with 'super high A1C'. He states that he made some changes with his diet and
that his numbers improved and he was taken off Soliqua and started on Jardiance.
Pt awake, A/O x3, sitting up in chair, pleasant and able to discuss diabetes mgt.
Lantus was discontinued 07/09. Glucose remains stable and in range w/o hypoglycemia. Premeal range 99 to 133 and FBG 145 this AM.
Will make no changes to current regimen. Cont Glipizide 5mg BID and Metformin 1000mg BID.
Given A1C of 9.6%, pt will need adequate oral regimen for optimal glucose control in the setting of bacteremia with suspected Aortic root abscess.
Diabetes plan of care was discussed in detail w/pt and Nurse.
D/C Meds: Glipizide 5mg BID and Metformin 1000mg BID.
Diabetes History
- -
Type of Diabetes: 2
Pre-Admission Diabetes Regimen
Lab Results
Hemoglobin A1c 9.6 % (4.0-5.6) H 07/03/23 05:54
Insulin Pump Settings
IP Diabetes Regimen
07/11/23 07/11/23 07/11/23
08:02 12:32 13:04
POC Glucose 139 H 66 L 117 H
07/11/23 07/11/23
16:26 21:36
POC Glucose 121 H 108 H
Meal type: Dinner
Meal type: Lunch
Meal type: Breakfast
Amount consumed: 100%
Amount consumed: 100%
Patient Education
[2023-07-12 07:00] VITALS: BP 146/96
[2023-07-12 08:05] LABS: Glucose - Point of Care 123 mg/dl (70-99)
[2023-07-12 08:17] LABS: Hematocrit 40.9 % (39.0-52.0); Hemoglobin 13.4 g/dL (13.0-18.0); Mean Corp Hgb Conc. 32.8 g/dL (33.0-37.0); Mean Corpuscular Hgb 29.2 pg (27.0-31.0); Mean Corpuscular Volume 89.1 fL (80.0-94.0); Mean Platelet Volume 10.1 fL (7.4-10.4); Platelet Count 269 10^3/uL (130-400); Red Blood Cell Count 4.59 10^6/uL (4.70-6.10); Red Cell Dist. Width 13.9 % (11.5-14.5); White Blood Cell Count 9.1 10^3/uL (4.8-10.8)
[2023-07-12] MEDS: NOVOLOG FLEXPEN-MODERATE RESISTANCE SC ×3 (08:20→17:15)
[2023-07-12] MEDS: GLUCOPHAGE 1000 MG PO ×2 (08:20→17:18)
[2023-07-12] MEDS: ASPIR LOW (ENTERIC COATED) 81 MG PO (08:20)
[2023-07-12] MEDS: CRESTOR 40 MG PO (08:21)
[2023-07-12] MEDS: GLUCOTROL 5 MG PO ×2 (08:21→17:18)
[2023-07-12] MEDS: TOPROL XL 50 MG PO (08:21)
[2023-07-12 09:20] LABS: Blood Urea Nitrogen 10 mg/dl (9-20); Calcium 9.7 mg/dl (8.4-10.2); Carbon Dioxide 25 mmol/L (22-30); Chloride 101 mmol/L (98-107); Estimated Creatinine Clearance 98 ml/min; Glucose 126 mg/dl (70-99); Potassium 4.7 mmol/L (3.5-5.1); Sodium 136 mmol/L (135-145); eGFR > 60.00
[2023-07-12] MEDS: ROCEPHIN 2000 MG IV (10:18)
[2023-07-12] MEDS: STERILE WATER FOR INJECTION 20 ML IV (10:18)
[2023-07-12 12:32] LABS: Glucose - Point of Care 132 mg/dl (70-99)
--- NOTE | 2023-07-12 12:52 | W.PN.HOSP.TC ---
Addendum entered and electronically signed by Georgette Newman MD 07/13/23 16:09:
total DC time was 40 min
Original Note:
Today's Communication/Plan
-
see A/P
Assessment / Plan
Assessment / Plan
A/P:
# Euglycemic DKA with anion gap 25 on admission, BG 300; related to sepsis POA and possibly Jardiance which he takes for his heart condition
# h/o NIDDM
# Prerenal ANGELA, resolved
# Mild lactic acidosis present on admission, resolved
Off insulin drip, out of ICU
A1C 9.6%
off Lantus
Cont Glipizide 5mg BID and Metformin 1000mg BID
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
# Sepsis POA with Strep Oralis Bacteremia, likely periodontal source of bacteremia.
# Now with likely with bioprosthetic aortic valve root/annular abscess with pannus formation
s/p KOFFI 07/08, noted possible bioprosthetic aortic valve root/annular abscess with pannus formation
ID on board, Narrow Zosyn to ceftriaxone.
CT TAVR 07/10 , did not reveal aortic root abscess
Card on board, discussed with CT surgery Dr. Potter from [facility], who has accepted pt for transfer
# History of bioprosthetic AVR 04/2022 at [facility] with Dr Potter who is now at [facility]
# COVID positive the day prior to admission at work
COVID test negative in ER.
Does not appear to require any further treatment.
# CAD s/p 2 PCI and CABG
# HTN
Continue aspirin and statin
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
# Paroxysmal atrial fibrillation
# Obstructive sleep apnea
# Hypertension
# Hypercholesterolemia
statin
Full code
DVT ppx: HSQ
DW card
Anticipated Discharge: 24 - 48 hours
Subjective/Interval History
-
Date of Service: July 12, 2023
Objective Data
-
Labs:
Laboratory Results
07/12/23
07:37
WBC 9.1
Hgb 13.4
Hct 40.9
Plt Count 269
Sodium 136
Potassium 4.7
Chloride 101
Carbon Dioxide 25
BUN 10
Creatinine 0.7
Glucose 126 H
Calcium 9.7
Vital Signs:
Vital Signs
Temp Pulse Resp BP Pulse Ox
36.6 C 86 16 146/96 100
07/12/23 07:00 07/12/23 07:00 07/12/23 07:00 07/12/23 07:00 07/12/23 07:00
I&O
07/11/23 07/12/23 07/13/23
06:59 06:59 06:59
Intake Total 2059
Balance 2059
Review of Systems
-
All other systems: Reviewed and negative
Physical Exam
-
General: Well Developed, Well Nourished, No Apparent Distress, Comfortable and Conversant; Negative Respiratory Distress
HEENT: Normocephalic, Atraumatic, Nose Appears Normal and Ears Appear Normal; Negative Oxygen
Respiratory: Clear to Auscultation and Non Labored Respirations; Negative Accessory Resp Muscle Use
Cardiac: Regular Rhythm and S1/S2
GI: Soft, Nontender, Nondistended and Normal Bowel Sounds
Skin: Warm and Dry
Neuro: Awake, Alert, Oriented, AO x 3 and Nonfocal/Grossly Intact
Psych: Calm and Intact Judgement/Insight
Data Reviewed
-
CT Scan: Report Reviewed by me
Medical Tests (Nuc Med, Echo etc): Report Reviewed by me (KOFFI)
Labs: Labs Reviewed by me
--- NOTE | 2023-07-12 14:13 | W.PN.CARDCBS ---
Today's Communication / Plan
-
Placed back on telemetry
Transfer to [facility]
Impression / Plan
-
Impression:
KOFFI 07/09/2023 with suspected aortic root abscess
Strep bacteremia, suspected periodontal source
Euglycemic DKA
History of type 2 diabetes
Acute kidney injury
CAD status post inferior PR 2010
PCI-circumflex and RCA stents 2004, type unknown, acute inferior PR 2010, Xience stent to RCA
CABG x 2, AVR 25 Barnett Inspiris bioprosthetic aortic valve June 2022
Possible COVID positive, follow-up test negative
Hypertension
Hyperlipidemia
Paroxysmal atrial fibrillation postop, now off anticoagulation
Obstructive sleep apnea
CABG/AVR 06/2022: #25 Barnett Inspiris Resilia supra annular AVR with OSN to LAD and saphenous vein to diagonal
Echocardiogram June 2023: EF 55-60%, bioprosthetic aortic valve, peak/mean gradient 17/9 mmHg, trace aortic regurgitation, normal RV, normal atria, trace MR, normal pulmonary artery pressure
KOFFI 07/09/23: EF 60 to 65%, evidence suggestive of bioprosthetic aortic valve root/annular abscess with pannus formation and partial dehiscence, no significant AR, mild to moderate MR, no MV veg noted
Plan:
Clinically he is unchanged based on his physical exam, and his sense of wellbeing is good.
However, on EKG his DE interval has prolonged to 230 ms. DE interval was 160 ms on admission. While this finding is nonspecific, an increased in DE interval could signify inflammation around the aortic annulus affecting the bundle of His and be a
harbinger of heart block related to endocarditis.
.
His transesophageal echo was concerning for possible root abscess but his CTA was reassuring.
.
I reviewed the case with Dr. Potter, and specifically the ambiguity surrounding the divergent of KOFFI and CTA.
In light of his DE interval we thought that continued inpatient management was the best option. We will place him back on telemetry. Dr. Potter has kindly accepted Mr. Scanlon in transfer to [facility].
Progress Note - Failure Analysis Technician
Subjective
Date of Service: July 12, 2023:
PMH/PSH/FH/SH: Reviewed
Allergies: Plavix
Medications: Reviewed
ROS: Negative except as above
146/96, 126/77, No distress, heart rate 70s to 80s, head neck exam unremarkable, no obvious stigmata of endocarditis peripherally, lungs are clear, regular rate and rhythm without obvious murmurs, abdomen benign, extremities without clubbing
cyanosis or edema and distal pulses intact.
white count 9.1, hemoglobin 13.4, platelets 269, BUN and creatinine 10 and 0.7
Objective
Labs:
07/12/23 07:37
07/12/23 07:37
Labs
Hgb 13.4 g/dL (13.0-18.0) 07/12/23 07:37
Hct 40.9 % (39.0-52.0) 07/12/23 07:37
Plt Count 269 10^3/uL (130-400) 07/12/23 07:37
PT 16.0 Sec (11.4-14.6) H 07/03/23 05:54
INR 1.30 07/03/23 05:54
APTT 30.6 Sec (23.4-35.0) 07/03/23 05:54
Sodium 136 mmol/L (135-145) 07/12/23 07:37
Potassium 4.7 mmol/L (3.5-5.1) 07/12/23 07:37
BUN 10 mg/dl (9-20) 07/12/23 07:37
Creatinine 0.7 mg/dL (0.7-1.3) 07/12/23 07:37
Glucose 126 mg/dl (70-99) H 07/12/23 07:37
Vital Signs and I&O:
Vital Signs
Temp Pulse Resp BP Pulse Ox
36.6 C 86 16 146/96 100
07/12/23 07:00 07/12/23 07:00 07/12/23 07:00 07/12/23 07:00 07/12/23 07:00
Vital Signs
Temp Pulse Resp BP Pulse Ox
36.6 C 86 16 146/96 100
07/12/23 07:00 07/12/23 07:00 07/12/23 07:00 07/12/23 07:00 07/12/23 07:00
Intake & Output
07/10/23 07/11/23 07/12/23 07/13/23
07:59 07:59 07:59 07:59
Intake Total 1060 / 1060 2059 / 0 1680 / 1680
Balance 1060 / 1060 2059 / 2059 1680 / 1680
Physical Exam
Physical Exam
See above
[2023-07-12 15:00] VITALS: BP 132/73
--- NOTE | 2023-07-12 15:39 | W.PN.ID1 ---
Date of Service
Date of Service: July 12, 2023
Today's Communication
Continue antibiotics.
Assessment / Plan
Strep mitis/oralis bacteremia
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
Leukocytosis; resolved
Encephalopathy
- Suspect TME from DKA
- resolved
Hx AVR (bovine, HUP; 06/2022)
CAD; Hx [place] x 2
HTN
Dyslipidemia
DM
Hx aortic stenosis
Recommendations:
KOFFI results noted.
Continue ceftriaxone 2gIV q24h (d#7 abx)
Repeat blood cultures negative to date.
Suspect periodontal source of bacteremia; pt reports he will need gum flap in near future.
Patient for likely transfer to [facility].
����������������������������������������������������������
Chief Complaint
-: Bacteremia
Subjective / Review of Systems
Review of Systems: No Fever and No Chills
Vital Signs / Physical Exam
Vital Signs
Vital Signs
Temp Pulse Resp BP Pulse Ox
98 F 89 16 132/73 97
07/12/23 15:00 07/12/23 15:00 07/12/23 15:00 07/12/23 15:00 07/12/23 15:00
Physical Exam
Constitutional: No Acute Distress, Comfortable and Non-toxic
Eyes: Sclera Anicteric
Pulmonary: Non Labored
Gastrointestinal: Non Distended
Neurological: Awake and Alert
Psychological: Calm
Objective Data
Lab Data
Lab Results
07/12/23 07:37
07/12/23 07:37
PT 16.0 Sec (11.4-14.6) H 07/03/23 05:54
INR 1.30 07/03/23 05:54
APTT 30.6 Sec (23.4-35.0) 07/03/23 05:54
Estimated Creat Clear 98 ml/min 07/12/23 07:37
Lactic Acid 0.9 mmol/L (0.7-2.0) 07/03/23 05:54
Total Bilirubin 0.5 mg/dl (0.2-1.3) 07/05/23 03:52
AST 35 U/L (17-59) 07/05/23 03:52
ALT 28 U/L (0-50) 07/05/23 03:52
Alkaline Phosphatase 66 U/L (38-126) 07/05/23 03:52
Most recent labs reviewed.
Micro Results:
07/04/23 13:59 Blood Culture - Final
Blood/Venous No Growth - Final Report
07/04/23 13:59 Blood Culture - Final
Blood/Venous No Growth - Final Report
07/02/23 23:55 Blood Culture - Final
Blood/Venous Strep mitis/oralis
Gram Stain - Final
07/02/23 23:20 Blood Culture - Final
Blood/Venous Strep mitis/oralis
Gram Stain - Final
07/04/23 11:27 Respiratory Culture - Final
Sputum Gram Stain - Final
07/02/23 23:49 Urine Culture - Final
Urine
Blood Culture Final MARLON: 07/02/23
Strep mitis/oralis
Organism 1 Strep mitis/oralis
1. Strep mitis/oralis
M.I.C. RX
--------- ---
Ampicillin <=0.06 S
Azithromycin >2 R
Ceftriaxone <=0.25 S
Clindamycin 2 I
Levofloxacin 0.5 S
Penicillin G <=0.03 S
Tetracycline <=0.5 S
Vancomycin 0.25 S
Imaging:
07/09/2023 ECHO (KOFFI):-Left ventricular ejection fraction is 60-65%. There was evidence suggestive of bioprosthetic aortic valve root/annular abscess with pannus formation and partial dehiscence. The bioprosthetic aortic valve appears to open
normally with no significant aortic regurgitation noted. Mild to moderate mitral regurgitation. No mitral valve vegetation visualized.
07/02/2023 CXR (2 view): Lungs are clear. No focal airspace process or pleural effusion. No pneumothorax seen. Please see full dictation for additional detail. Film personally viewed.
Care Review
Plan reviewed with: Physician (Cardiology)
[2023-07-12 17:04] LABS: Glucose - Point of Care 113 mg/dl (70-99)
--- NOTE | 2023-07-12 17:17 | CM ---
Spoke with patient at bedside. IMM explained IMM signede on chart.
Cardiology involved.
Pt cardiac surgeon is at [facility] .
Transfer to [facility] for CT surgery.
Dr Potter receiving MD at [facility].
Transfer form completed by MD.
[facility] transfer team called floor with a bed.
PLAN Transfer to [facility] via ambulance
[2023-07-12] MEDS: LOVENOX 40 MG SC (17:19)
--- NOTE | 2023-07-12 18:23 | W.PN.UPDATE ---
Update Note
Progress Note Update
I received a text from Dr. Potter that patient will be transferred Saturday, but patient was notified he would go up tonight, at this point await clarification, no objection to transfer tonight if already in progress
[2023-07-12 19:00] VITALS: BP 137/94
[2023-07-12 21:31] LABS: Glucose - Point of Care 119 mg/dl (70-99)
--- NOTE | 2023-07-12 22:04 | PTCARENOTE ---
Pt to be transferred to [facility], pt verbalizes understanding of transfer. medical pathologist removed. [facility], off of floor at approx [phone].
--- NOTE | 2023-07-13 15:47 | W.DCSUMMARY ---
Discharge Summary
Discharge Data
Date of Admission: 07/03/23
Date of Discharge: 07/12/23
-
Pending Results: No
Hospital Course
Principal Diagnosis:
Euglycemic diabetes ketoacidosis (DKA) on admission likely related to sepsis on admission
Resolved acute kidney injury
Sepsis on admission with strep oralis bacteremia, likely periodontal source of bacteremia.
Chronic Diagnoses:�
Iqx-[id number] diabetes
History of bioprosthetic aortic valve replacement 04/2022 at [facility] with Dr Potter who is now at [facility]
Coronary artery disease status post cardiac stent and bypass surgery
Hypertension
Paroxysmal atrial fibrillation
Obstructive sleep apnea
Hypertension
Hypercholesterolemia
Consultations:�
Infectious disease
Cardiology
Cardiothoracic surgery
Diabetes nurse practitioner
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
Procedures:�
KOFFI on 07/09/23
Clinical course:�
This is a 63-year-old male, with past medical history as stated above, who presented with generalized weakness, shortness of breath and dyspnea on exertion ongoing for about 2 days.
He was noted to be in DKA on admission.
Problem 1:
Euglycemic DKA on admission likely related to sepsis on admission.
This was associated with prerenal ANGELA which was resolved following IV fluid.
The patient initially received insulin drip, which was transitioned to subcu insulin.
At the time of transfer, he was on glipizide 5 mg and metformin 1000 mg twice daily without further insulin.
Problem 2:
Sepsis on admission with Strep oralis bacteremia, likely periodontal source of bacteremia.
The patient initially received Zosyn which was narrowed to ceftriaxone.
The patient underwent KOFFI on 07/08 which noted possible bioprosthetic aortic valve root/annular abscess with pannus formation.
His CT chest on 07/11/2023 did not show aortic root abscess.
Given his EKG noted prolongation of the FL interval to 230 ms (was at 160 ms on admission), it was decided to transfer the patient to Dr Potter (who did the initial aortic valve replacement) now at [facility] for repeat AVR evaluation.
The patient was accepted under the cardiology service by Dr Laughlin.
As for the rest of his medical problems, they were stable during his hospital stay prior to transfer.
Discharge Plan
-
Patient Disposition: Acute Care Hospital
Discharge Date and Time
Discharge Date/Time: 07/12/23 22:03
Print Language: IRISH
== END 2023-07-12 22:03 | disposition short-term general hospital (02) | DRG 871 ==
LOC: 3 WEST ACU 00:47
PROVIDERS: Clinical Nurse Specialist Family Health; Hospitalist; Internal Medicine; Nurse Practitioner Family; ADMITTING PHYSICIAN Internal Medicine; CONSULT PHYSICIAN Internal Medicine; CONSULT PHYSICIAN Internal Medicine Cardiovascular Disease; CONSULT PHYSICIAN Internal Medicine Infectious Disease; EMERGENCY PHYSICIAN Emergency Medicine; FAMILY PHYSICIAN Family Medicine
PROC: B24BZZ4 Ultrasonography of Heart with Aorta, Transesophageal (ICD-10-PCS; 2023-07-09)
DX: A40.8 Other streptococcal sepsis (principal); E11.10 Type 2 diabetes mellitus with ketoacidosis without coma; G92.8 Other toxic encephalopathy; N17.9 Acute kidney failure, unspecified; I25.10 Atherosclerotic heart disease of native coronary artery without angina pectoris; I10 Essential (primary) hypertension; E78.00 Pure hypercholesterolemia, unspecified; G47.33 Obstructive sleep apnea (adult) (pediatric); I48.0 Paroxysmal atrial fibrillation; M06.4 Inflammatory polyarthropathy; K04.7 Periapical abscess without sinus; I25.2 Old myocardial infarction; Z11.52 Encounter for screening for COVID-19; Z79.82 Long term (current) use of aspirin; Z79.84 Long term (current) use of oral hypoglycemic drugs; Z79.899 Other long term (current) drug therapy; Z86.16 Personal history of COVID-19; Z95.1 Presence of aortocoronary bypass graft; Z95.3 Presence of xenogenic heart valve; Z95.5 Presence of coronary angioplasty implant and graft
CPT/HCPCS: 36600; 70450; 71046; 75572; 80048; 80053; 81003; 81015; 82010; 82805; 82962; 83036; 83605; 83735; 84100; 84145; 84484; 85025; 85027; 85610; 85730; 87040; 87077; 87086; 87186; 87205; 87811; 93005; 93312; 93320; 93325; 97116; 97162; 97166; 97535; 99285; Q9967